=== PATIENT | male | born 1975 | race Hispanic/Latino ===

== ENCOUNTER 2018-04-20 21:27 | Emergency (ER) | payer OTHER ==
[2018-04-20] MEDS ORDERED: Sodium Chloride 0.9% 1,000 ML IV ONE (22:05)
--- NOTE | 2018-04-20 22:12 | ED PDOC ---
Arrival/HPI - General Chief Complaint: Fever Time Seen by Provider: 04/20/18 22:05 Historian: Patient - History of Present Illness Narrative History of Present Illness (Text): 04/20/18 22:04 A 42 year old male, whose past medical history includes endocarditis, presents to the emergency department complaining of high fever (measured at home reading 103.9), chills, and joint pain sinct last night. Patient notes also experiencing headache, fatigue, and slight chest congestion. He mentions his joint pain was worse last night and is currently in less pain than previously. Patient reports due to past medical history, he was concerned about the symptoms leading to similar issue and arrived to the emergency room for evaluation. Patient denies any sore throat, cough, chest pain, shortness of breath, vomiting, neck pain, trauma, or any other complaints at this time. Also , patient denies any recent sick contacts. No PMD Past Medical History - Provider Review Nursing Documentation Reviewed: Yes - Infectious Disease Hx of Infectious Diseases: MRSA - Cardiac Other/Comment: endocarditis - Musculoskeletal/Rheumatological Other/Comment: h/o MRSA left foot wound - 9 yrs ago - Psychiatric Hx Substance Use: No - Surgical History Hx Valve Replacement: Yes (2001 at [facility]) - Anesthesia Hx Anesthesia: Yes Hx Anesthesia Reactions: No Hx Malignant Hyperthermia: No Family/Social History - Physician Review Nursing Documentation Reviewed: Yes Family/Social History: No Known Family HX Smoking Status: Never Smoked Hx Alcohol Use: No Hx Substance Use: No Allergies/Home Meds Allergies/Adverse Reactions: Allergies ragweed pollen Adverse Reaction (Verified 04/20/18 21:58) RASH Home Medications: Home Meds Medication Instructions Recorded Confirmed Aspirin [Adult Aspirin] 1 tab.ec PO DAILY 04/20/18 04/20/18 Review of Systems - Physician Review All systems were reviewed & negative as marked: Yes - Review of Systems Constitutional: Fatigue, Fevers (103.9 as measured by patient at home), Night Sweats. absent: Other (no trauma) ENT: absent: Sore Throat Respiratory: absent: SOB, Cough Cardiovascular: Other (slight chest congestion). absent: Chest Pain Gastrointestinal: absent: Stool Changes (patient states " cant' process solids" has he has not been able to pass any stool), Vomiting Musculoskeletal: Arthralgias. absent: Neck Pain Neurological: Headache Physical Exam Vital Signs Reviewed: Yes Vital Signs Temp Pulse Resp BP Pulse Ox 04/21/18 01:09 99.0 F 78 17 101/57 L 98 04/20/18 21:47 101.6 F H 112 H 19 99/63 L 97 Temperature: Febrile Blood Pressure: Normal Pulse: Regular Respiratory Rate: Normal Appearance: Positive for: Well-Appearing, Non-Toxic, Comfortable Pain Distress: None Mental Status: Positive for: Alert and Oriented X 3 - Systems Exam Head: Present: Atraumatic, Normocephalic Mouth: Present: Moist Mucous Membranes Neck: Present: Normal Range of Motion Respiratory/Chest: Present: Clear to Auscultation, Good Air Exchange. No: Respiratory Distress, Accessory Muscle Use Cardiovascular: Present: Murmurs (systolic) Abdomen: No: Tenderness, Distention, Peritoneal Signs Back: Present: Normal Inspection Upper Extremity: Present: Normal Inspection. No: Cyanosis, Edema Lower Extremity: Present: Normal Inspection. No: Edema Neurological: Present: GCS=15, CN II-XII Intact, Speech Normal Skin: Present: Warm, Dry, Normal Color. No: Rashes Psychiatric: Present: Alert, Oriented x 3, Normal Insight, Normal Concentration Medical Decision Making ED Course and Treatment: 04/20/18 22:06 Impression: 42 year old male with high fever, chills, and joint pain. Will do sepsis workup given history of endocarditis. Plan: -- EKG -- Chest X-ray -- Labs -- Venous Blood Gas -- IV Fluids -- Urinalysis -- Blood Culture -- Reassess and disposition Progress Notes: Patient re-evaluated, after 1L NS bolus plus tylenol that patient previously took at home temperature and HR improved. BP also mildly improved. patient AAAOx3 and in no distress, has no complaints. Results discussed. Patient amenable to discharge home. No leukocytosis or lactic acidosis. Cultures pending , informed patient that he will be contacted if they returned telephone equipment appraiser positive. Meanwhile he is to return to the ED for any new or worsening symptoms. - Lab Interpretations Lab Results: 04/20/18 22:14 04/20/18 22:14 Lab Results 04/21/18 00:20: Urine Color Yellow, Urine Appearance Clear, Urine pH 6.0, Ur Specific [place] 1.010, Urine Protein Negative, Urine Glucose (UA) Negative, Urine Ketones Negative, Urine Blood Negative, Urine Nitrate Negative, Urine Bilirubin Negative, Urine Urobilinogen 1.0 H, Ur Leukocyte Esterase Negative 04/20/18 22:39: PT 16.7 H, INR 1.45 H, APTT 33.3 04/20/18 22:14: Sodium 140, Chloride 99, Potassium 4.7, Carbon Dioxide 27, Anion Gap 18, BUN 10, Creatinine 1.0, Est GFR ( Amer) > 60, Est GFR (Non- Af Amer) > 60, Random Glucose 115 H, Calcium 9.4, Phosphorus 2.8, Magnesium 1.8 , Total Bilirubin 1.2, AST 53, ALT 51, Alkaline Phosphatase 64, Total Protein 7.7, Albumin 4.8, Globulin 3.0, Albumin/Globulin Ratio 1.6 04/20/18 22:14: pO2 26 L, VBG pH 7.33, VBG pCO2 57.0, VBG HCO3 30.1 H, VBG Total CO2 31.8 H, VBG O2 Sat (Calc) 55.7, VBG Base Excess 2.8 H, VBG Potassium 4.4, Sodium 137.0, Chloride 101.0, Glucose 119 H, Lactate 1.5, FiO2 21.0, Venous Blood Potassium 4.4 04/20/18 22:14: WBC 4.3 L, RBC 5.64, Hgb 16.8, Hct 48.2, MCV 85.5, MCH 29.8, MCHC 34.9, RDW 12.5, Plt Count 114 L, MPV 11.5 H, Gran % 81.3 H, Lymph % (Auto) 8.8 L, [place] % (Auto) 9.7 H, Eos % (Auto) 0.0 L, Baso % (Auto) 0.2, Gran # 3.52, Lymph # (Auto) 0.4 L, [place] # (Auto) 0.4, Eos # (Auto) 0.0, Baso # (Auto) 0.01 - RAD Interpretation Radiology Orders: 04/20/18 22:06 CHEST PORTABLE [RAD] Stat - Medication Orders Current Medication Orders: Discontinued Medications Sodium Chloride (Sodium Chloride 0.9%) 1,000 mls @ 2,000 mls/hr IV .Q30M ONE Stop: 04/20/18 22:34 Last Admin: 04/20/18 22:25 Dose: 2,000 mls/hr eMAR Start Stop Document 04/20/18 22:25 IT (Rec: 04/20/18 22:25 IT [id number]) Intravenous Solution Start Date 04/20/18 Start Time 22:25 - Scribe Statement The provider has reviewed the documentation as recorded by the Vince Campbell Provider Scribe Provider Vince Attestation: All medical record entries made by the Scribe were at my direction and personally dictated by me. I have reviewed the chart and agree that the record accurately reflects my personal performance of the history, physical exam, medical decision making, and the department course for this patient. I have also personally directed, reviewed, and agree with the discharge instructions and disposition. Disposition/Present on Arrival - Present on Arrival Any Indicators Present on Arrival: No History of DVT/PE: No History of Uncontrolled Diabetes: No Urinary Catheter: No History of Decub. Ulcer: No History Surgical Site Infection Following: None - Disposition Have Diagnosis and Disposition been Completed?: Yes Diagnosis: Fever Disposition: HOME/ ROUTINE Disposition Time: 01:09 Condition: GOOD Discharge Instructions (ExitCare): Fever of Unknown Origin (DC) Additional Instructions: WILDER CHEEMA, thank you for letting us take care of you today. Your provider was Mildred Corrales MD and you were treated for FEVER. The emergency medical care you received today was directed at your acute symptoms. If you were prescribed any medication, please fill it and take as directed. It may take several days for your symptoms to resolve. Return to the Emergency Department if your symptoms worsen, do not improve, or if you have any other problems. Please contact your doctor or call one of the physicians/clinics you have been referred to that are listed on the Patient Visit Information form that is included in your discharge packet. Bring any paperwork you were given at discharge with you along with any medications you are taking to your follow up visit. Our treatment cannot replace ongoing medical care by a primary care provider outside of the emergency department. Thank you for allowing the [facility] team to be part of your care today. If you had an X-Ray or CT scan: A Radiologist will review the ED reading if any change in treatment is needed we will contact you. If you had a blood, urine, or wound culture: It will take several days for the results, if any change in treatment is needed we will contact you. If you had an STI test: It will take 48 hours for the results. Please call after 1 week if you have not heard back. Forms: [employer] ([place])
[2018-04-20 22:28] LABS: BASO # 0.01 K/mm3 (0.0-2.0); BASO % 0.2 % (0.0-3.0); GRAN # 3.52 (1.4-6.5); GRAN % 81.3 % (50.0-68.0); HEMOGLOBIN 16.8 g/dL (14.0-18.0); LYMPH # 0.4 (1.2-3.4); LYMPH % 8.8 % (22.0-35.0); MEAN CELL VOLUME 85.5 fl (80.0-105.0); MEAN CORPUSCULAR HEMOGLOBIN 29.8 pg (25.0-35.0); MEAN CORPUSCULAR HGB CONC 34.9 g/dl (31.0-37.0); MEAN PLATELET VOLUME 11.5 fl (7.0-11.0); MONO # 0.4 (0.1-0.6); MONO % 9.7 % (1.0-6.0); RBC 5.64 10^6/uL (3.5-6.1); RED CELL DISTRIBUTION WIDTH 12.5 % (11.5-14.5); WHITE BLOOD COUNT 4.3 10^3/ul (4.5-11.0)
[2018-04-20 22:34] LABS: VENOUS BLOOD GAS BASE EXCESS 2.8 mmol/L (0.0-2.0); VENOUS BLOOD GAS PO2 26 mm/Hg (30-55); VENOUS BLOOD PH 7.33 (7.32-7.43)
[2018-04-20 22:39] LABS: ALB/GLOB RATIO 1.6 (1.1-1.8); ALBUMIN 4.8 g/dL (3.0-4.8); ALT/SGPT 51 U/L (7-56); AST/SGOT 53 U/L (17-59); BLOOD UREA NITROGEN 10 mg/dL (7-21); CALCIUM 9.4 mg/dL (8.4-10.5); GFR AFRICAN-AMERICAN > 60; GFR NON-AFRICAN AMERICAN > 60
[2018-04-20 23:17] LABS: INR 1.45 (0.93-1.08); PARTIAL THROMBOPLASTIN TIME 33.3 Seconds (25.1-36.5); PROTHROMBIN TIME 16.7 SECONDS (9.4-12.5)
[2018-04-21 00:27] LABS: URINE BILIRUBIN NEGATIVE (NEGATIVE); URINE BLOOD NEGATIVE (NEGATIVE); URINE GLUCOSE (UA) NEGATIVE (NEGATIVE); URINE LEUKOCYTE ESTERASE NEGATIVE Leu/uL (NEGATIVE); URINE PROTEIN NEGATIVE mg/dL (<30 mg/dL)
[2018-04-21 00:34] LABS: URINE COLOR YELLOW (YELLOW)
[2018-04-21 00:35] LABS: URINE APPEARANCE CLEAR (CLEAR)
[2018-04-21 01:09] VITALS: BP 101/57; PULSE 78; RESP 17; TEMP 99; O2SAT 98
--- NOTE | 2018-04-21 08:33 | RAD ---
Date of service: 04/20/2018 HISTORY: Sepsis Patient COMPARISON: No prior. FINDINGS: LUNGS: No active pulmonary disease. PLEURA: No significant pleural effusion identified, no pneumothorax apparent. CARDIOVASCULAR: Normal. OSSEOUS STRUCTURES: Sternal wires VISUALIZED UPPER ABDOMEN: Normal. OTHER FINDINGS: None. IMPRESSION: No active disease.
--- NOTE | 2018-04-21 21:02 | CARD ---
APPROVED REPORT Date of service: 04/20/2018 EKG Measurement Heart [id number] <Conclusion> Poor data quality, interpretation may be adversely affected Normal sinus rhythm Possible Left atrial enlargement Borderline ECG
== END 2018-04-21 01:09 | disposition home or self-care (01) ==
LOC: ED 21:27
DX: R50.9 Fever, unspecified (principal)
CPT/HCPCS: 71045; 80053; 81003; 82803; 83735; 84100; 85025; 85610; 85730; 87040; 87149; 87205; 93005; 99284; J7030

== ENCOUNTER 2018-04-22 11:51 | Inpatient (IN) | payer OTHER ==
[2018-04-22 12:39] VITALS: BMI 19.3
[2018-04-22] MEDS ORDERED: Vancomycin 1gm in NS 250ml 1 GM/250 ML BAG IVPB STA (12:45)
[2018-04-22 12:55] LABS: VENOUS BLOOD GAS BASE EXCESS -0.4 mmol/L (0.0-2.0); VENOUS BLOOD GAS PO2 25 mm/Hg (30-55); VENOUS BLOOD PH 7.31 (7.32-7.43)
[2018-04-22 13:02] LABS: BASO # 0.01 K/mm3 (0.0-2.0); BASO % 0.3 % (0.0-3.0); GRAN # 3.01 (1.4-6.5); GRAN % 82.4 % (50.0-68.0); HEMOGLOBIN 16.1 g/dL (14.0-18.0); LYMPH # 0.4 (1.2-3.4); LYMPH % 10.7 % (22.0-35.0); MEAN CELL VOLUME 84.6 fl (80.0-105.0); MEAN CORPUSCULAR HEMOGLOBIN 29.6 pg (25.0-35.0); MEAN PLATELET VOLUME 11.8 fl (7.0-11.0); MONO # 0.2 (0.1-0.6); MONO % 6.6 % (1.0-6.0); RBC 5.44 10^6/uL (3.5-6.1); RED CELL DISTRIBUTION WIDTH 12.6 % (11.5-14.5); WHITE BLOOD COUNT 3.7 10^3/ul (4.5-11.0)
[2018-04-22 13:05] LABS: INR 1.29 (0.93-1.08); PARTIAL THROMBOPLASTIN TIME 40.9 Seconds (25.1-36.5); PROTHROMBIN TIME 14.9 SECONDS (9.4-12.5)
[2018-04-22 13:11] LABS: ALB/GLOB RATIO 1.6 (1.1-1.8); ALBUMIN 4.7 g/dL (3.0-4.8); ALT/SGPT 82 U/L (7-56); AST/SGOT 74 U/L (17-59); BLOOD UREA NITROGEN 7 mg/dL (7-21); CALCIUM 9.3 mg/dL (8.4-10.5); GFR AFRICAN-AMERICAN > 60; GFR NON-AFRICAN AMERICAN > 60
[2018-04-22] MEDS ORDERED: Sodium Chloride 0.9% 500 ML IV STA (13:16)
[2018-04-22 13:20] LABS: B-TYPE NATRIURETIC PEPTIDE 458 pg/mL (0-450); TROPONIN I < 0.01 ng/mL
--- NOTE | 2018-04-22 13:55 | ED PDOC ---
Arrival/HPI - General Chief Complaint: Medical Clearance Time Seen by Provider: 04/22/18 12:32 Historian: Patient - History of Present Illness Narrative History of Present Illness (Text): 04/22/18 13:52 Patient is a 42 yo male with past medical history of prior valvular cardiac surgery, history of endocarditis, history of cva, presents to the Emergency Department today after blood cultures obtained during ER visit on 04/20/18 were reportedly positive. Patient was called at home when results were provided and stated he "felt better than Monday" but still was running fevers of 102 on Monday and 100 this morning. He denies cough or shortness of breath. He denies rash. He denies abdominal pain. He states his abdomen "feels like my food isn't going down" but he denies nausea. He reported decreased appetite. No headache. No rash. No neck pain. No sore throat or visual symptoms. He denies abdominal pain or back pain. Denies bruising. Denies bloody urine or stool. Past Medical History - Infectious Disease Hx of Infectious Diseases: None - Cardiac Other/Comment: endocarditis - Musculoskeletal/Rheumatological Other/Comment: h/o MRSA left foot wound - 9 yrs ago - Psychiatric Hx Substance Use: No - Surgical History Hx Valve Replacement: Yes (2001 at [facility]) - Anesthesia Hx Anesthesia: Yes Hx Anesthesia Reactions: No Hx Malignant Hyperthermia: No Family/Social History Family/Social History: Unknown Family HX Smoking Status: Never Smoked Hx Alcohol Use: No Hx Substance Use: No Allergies/Home Meds Allergies/Adverse Reactions: Allergies ragweed pollen Adverse Reaction (Verified 04/22/18 12:16) RASH Home Medications: Home Meds Medication Instructions Recorded Confirmed Aspirin [Adult Aspirin] 1 tab.ec PO DAILY 04/20/18 04/22/18 Review of Systems - Review of Systems Constitutional: Fatigue, Fevers. absent: Weight Change Eyes: absent: Vision Changes, Eye Pain ENT: absent: Voice Changes, Sore Throat, Sinus Congestion Respiratory: absent: SOB, Cough, Wheezing Cardiovascular: absent: Chest Pain, Edema, AGUILAR, Orthopnea, Syncope Gastrointestinal: Appetite Changes. absent: Abdominal Pain, Diarrhea, Vomiting , Hematochezia, Hematemesis, Anorexia Genitourinary Male: absent: Dysuria, Frequency Musculoskeletal: Arthralgias, Myalgias. absent: Back Pain Skin: absent: Rash, Skin Lesions, Abscess Neurological: absent: Headache, Dizziness, Focal Weakness Endocrine: absent: Polyuria Hemo/Lymphatic: absent: Easy Bleeding Physical Exam Vital Signs Reviewed: Yes Vital Signs Temp Pulse Resp BP Pulse Ox 04/22/18 14:32 81 18 102/69 99 04/22/18 12:14 99.0 F 90 16 98/65 L 99 Temperature: Afebrile Pulse: Regular Appearance: Positive for: Non-Toxic Pain Distress: None Mental Status: Positive for: Alert and Oriented X 3 - Systems Exam Head: Present: Atraumatic, Normocephalic Pupils: Present: PERRL, Other (no visual acuity or visual field deficits described) Extroacular Muscles: Present: EOMI Conjunctiva: Present: Normal, Other (no conunctival lesions) Mouth: Present: Moist Mucous Membranes. No: Drooling, Trismus Pharnyx: No: EXUDATE, Muffled/Hoarse Voice, Strider Nose (Internal): Present: No Active Bleeding. No: Rhinorrhea Neck: Present: Normal Range of Motion, Trachea Midline. No: Meningeal Signs, MIDLINE TENDERNESS Respiratory/Chest: Present: Clear to Auscultation. No: Respiratory Distress, Wheezes, Rales, Rhonchi Cardiovascular: Present: Regular Rate and Rhythm, Murmurs (prominent systolic murmur) Abdomen: No: Tenderness, Peritoneal Signs, Rebound, Guarding, Mass/Organomegaly Rectal: No: Gross Blood Upper Extremity: Present: Normal ROM, Neurovascularly Intact. No: Swelling, Erythema Lower Extremity: Present: Normal Inspection, NORMAL PULSES, Neurovascularly Intact. No: Edema, CALF TENDERNESS, Tenderness, Swelling Neurological: Present: Speech Normal, Motor Func Grossly Intact, Normal Sensory Function, Gait Normal, Memory Normal Skin: Present: Warm, Dry, Other (no rash noted to trunk or extremities, no petechia, no lesions to fingertips or nailbeds). No: Rashes Lymphatic: No: Cervical Adenopathy Psychiatric: Present: Alert, Normal Insight, Normal Concentration Medical Decision Making ED Course and Treatment: Patient was called by me earlier this morning regarding positive blood culture results which I received earlier this morning. I reviewed blood culture results with patient in laymens terms and reviewed his past medical history. Patient states he has improvement in bodyaches and joint pain that he had two days ago, but still has fevers. Denies headache. Denies numbness or weakness. Denies facial droop. He denies rash or bruising. Denies chest pain or shortness of breath. Denies calf pain or swelling. Denies pleuritic pain. On exam, he has no meningeal signs, he is nontoxic appearing. He has prominent systolic murmur which he states he is aware of from his previous cardiac procedures. No hypoxia noted. I reviewed patient's labs from 04/20 compared to today. Platelet count has dropped to 80. PT/INR/PTT elevated. Bilirubin and LFTs elevated. He has NO abdominal pain on palpation. Abnormal labs when compared to previous visit was compared and discussed with patient in lamens' terms. I feel that he is at high risk of sepsis and endocarditis and bacteremia, especially given trend of labs. He states that he "feels ok". Continues to deny pain or discomfort. Patient's case discussed with Dr. Jose Alberto Bazan, Infectious Disease in ED. I reviewed history as well as labs. IV vancomycin ordered. He is not tachycardic. Initial lactate unremarkable. Labs are concerning for risk of sepsis. I discussed case with pharm tech Dr. Lane, covering for PMD requested consult Dr. Duong. History and exam reviewed. Abnormal labs reviewed. Ultrasound ordered. 04/22/2018 14:21 Abdominal Ultrasound IMPRESSION: Fatty infiltration of the liver. Dictator: Jonas Allen MD He continues to have no headache, no neck pain, no rash or lesions noted on fingertips or palms/ soles, no petechial rash. No skin lesions noted. Will admit to telemetry bed as stable BP after iv fluids, no tachycardia, initial lactate unremarkable. Differential diagnosis reviewed with patient and have communicated with ID and coring machine operator as well as Dr. Rizzo, oncall PMD who will admit patient. CXR from previous visit reviewed. He reports no new cough or shortness of breath since then. UA from prior visit reviewed. He denies urinary symptoms. - Lab Interpretations Lab Results: 04/22/18 12:40 04/22/18 12:40 Lab Results 04/22/18 12:40: Sodium 138, Chloride 100, Potassium 4.3, Carbon Dioxide 26, Anion Gap 17, BUN 7, Creatinine 0.8, Est GFR ( Amer) > 60, Est GFR (Non- Af Amer) > 60, Random Glucose 110, Calcium 9.3, Magnesium 2.0, Total Bilirubin 2.1 H, AST 74 H D, ALT 82 H, Alkaline Phosphatase 84, Lactate Dehydrogenase 974 H, Total Creatine Kinase 158, Troponin I < 0.01, NT-Pro-B Natriuret Pep 458 H, Total Protein 7.7, Albumin 4.7, Globulin 3.0, Albumin/Globulin Ratio 1.6 04/22/18 12:40: pO2 25 L, VBG pH 7.31 L, VBG pCO2 53.0, VBG HCO3 26.7, VBG Total CO2 28.3 H, VBG O2 Sat (Calc) 48.6, VBG Base Excess -0.4 L, VBG Potassium 4.1, Sodium 134.0, Chloride 100.0, Glucose 114 H, Lactate 1.2, FiO2 21.0, Venous Blood Potassium 4.1 04/22/18 12:40: PT 14.9 H, INR 1.29 H, APTT 40.9 H 04/22/18 12:40: WBC 3.7 L, RBC 5.44, Hgb 16.1, Hct 46.0, MCV 84.6, MCH 29.6, MCHC 35.0, RDW 12.6, Plt Count 80 L, MPV 11.8 H, Gran % 82.4 H, Lymph % (Auto) 10.7 L, [place] % (Auto) 6.6 H, Eos % (Auto) 0.0 L, Baso % (Auto) 0.3, Gran # 3.01 , Lymph # (Auto) 0.4 L, [place] # (Auto) 0.2, Eos # (Auto) 0.0, Baso # (Auto) 0.01 Interpretation: Abnormal lab values - RAD Interpretation Narrative RAD Interpretations (Text): 04/22/18 18:42 chest xray from 04/20/18 reviewed Radiology Orders: 04/22/18 13:14 ABDOMEN COMPLETE [US] Stat - EKG Interpretation EKG Interpretation (Text): 04/22/18 18:16 EKG at 14:49 normal sinus rhythm rate of 82 Interpreted by ED Physician: Yes Type: 12 lead EKG - Medication Orders Current Medication Orders: Sodium Chloride (Sodium Chloride 0.9%) 1,000 mls @ 100 mls/hr IV .Q10H STEPHANIE Last Admin: 04/22/18 15:16 Dose: 100 mls/hr eMAR Start Stop Document 04/22/18 15:16 GMD (Rec: 04/22/18 15:16 GMD [id number]) Intravenous Solution Start Date 04/22/18 Start Time 15:16 Vancomycin HCl (Vancomycin 1gm) 1 gm in 250 mls @ 167 mls/hr IVPB 0100,1300 STEPHANIE PRN Reason: Protocol Discontinued Medications Vancomycin HCl (Vancomycin 1gm) 1 gm in 250 mls @ 167 mls/hr IVPB STAT STA PRN Reason: Protocol Stop: 04/22/18 14:14 Last Admin: 04/22/18 13:24 Dose: 167 mls/hr eMAR Start Stop Document 04/22/18 13:24 GMD (Rec: 04/22/18 13:24 GMD [id number]) Intravenous Solution Start Date 04/22/18 Start Time 13:24 End Date 04/22/18 End time 14:54 Total Infusion Time 90 Sodium Chloride (Sodium Chloride 0.9%) 500 mls @ 1,000 mls/hr IV .Q30M STA Stop: 04/22/18 13:45 Last Admin: 04/22/18 13:23 Dose: 1,000 mls/hr eMAR Start Stop Document 04/22/18 13:23 GMD (Rec: 04/22/18 13:24 GMD [id number]) Intravenous Solution Start Date 04/22/18 Start Time 13:23 End Date 04/22/18 End time 13:53 Total Infusion Time 30 Disposition/Present on Arrival - Present on Arrival Any Indicators Present on Arrival: No History of DVT/PE: No History of Uncontrolled Diabetes: No Urinary Catheter: No History of Decub. Ulcer: No History Surgical Site Infection Following: None - Disposition Have Diagnosis and Disposition been Completed?: Yes Diagnosis: Positive blood cultures, Bacteremia, Fever and chills, Thrombocytopenia, Elevated liver enzymes, Abnormal coagulation profile Disposition: HOSPITALIZED Disposition Time: 13:00 Patient Plan: Admission, Telemetry Patient Problems: Current Active Problems Problem Status Onset Bacteremia Acute Elevated liver enzymes Acute Fever and chills Acute Positive blood cultures Acute Thrombocytopenia Acute Condition: SERIOUS
--- NOTE | 2018-04-22 14:23 | US ---
Date of service: 04/22/2018 HISTORY: upper abdominal pain COMPARISON: None. TECHNIQUE: Sonographic evaluation of the abdomen. FINDINGS: LIVER: Measures 13 x 11.8 cm. Increased echogenicity of the liver parenchyma. No mass. No intrahepatic bile duct dilatation. GALLBLADDER: Unremarkable. No gallstones. COMMON BILE DUCT: Measures 3 mm. No stones. No dilatation. PANCREAS: Unremarkable as visualized. No mass. No ductal dilatation. RIGHT KIDNEY: Measures 10.66 x 4.34 x 5.36cm. Normal echogenicity. No calculus, mass, or hydronephrosis. LEFT KIDNEY: Measures 9.62 x 3.48 x 5.87cm. Normal echogenicity. No calculus, mass, or hydronephrosis. SPLEEN: Normal in size and contour. No mass. 13.45 x 6.58 AORTA: No aneurysmal dilatation. IVC: Unremarkable. OTHER FINDINGS: None. IMPRESSION: Fatty infiltration of the liver
[2018-04-22] MEDS: Sodium Chloride 0.9% 1,000 ML IV SCH (15:16)
[2018-04-22 15:54] LABS: PH,URINE 6.5 (4.7-8.0); URINE BILIRUBIN NEGATIVE (NEGATIVE); URINE BLOOD NEGATIVE (NEGATIVE); URINE GLUCOSE (UA) NEGATIVE (NEGATIVE); URINE LEUKOCYTE ESTERASE NEGATIVE Leu/uL (NEGATIVE); URINE PROTEIN TRACE mg/dL (<30 mg/dL); URINE UROBILINOGEN >=8.0 E.U./dL (<1 E.U./dL)
[2018-04-22 16:00] LABS: URINE APPEARANCE CLEAR (CLEAR); URINE COLOR LIGHT YELLOW (YELLOW)
[2018-04-22 16:48] LABS: URINE BACTERIA FEW (NEG); URINE RBC 0 - 2 /hpf (0-2); URINE WBC 0 - 2 /hpf (0-6)
[2018-04-23] MEDS: Vancomycin 1gm in NS 250ml 1 GM/250 ML BAG IVPB SCH ×2 (00:57→13:17)
[2018-04-23] MEDS: Sodium Chloride 0.9% 1,000 ML IV SCH ×2 (00:57→13:17)
[2018-04-23 07:13] LABS: HEMOGLOBIN 15.1 g/dL (14.0-18.0); MEAN CELL VOLUME 84.6 fl (80.0-105.0); MEAN CORPUSCULAR HEMOGLOBIN 29.4 pg (25.0-35.0); MEAN CORPUSCULAR HGB CONC 34.8 g/dl (31.0-37.0); MEAN PLATELET VOLUME 12.7 fl (7.0-11.0); RBC 5.13 10^6/uL (3.5-6.1); RED CELL DISTRIBUTION WIDTH 12.7 % (11.5-14.5)
[2018-04-23 07:36] LABS: BLOOD UREA NITROGEN 8 mg/dL (7-21); GFR AFRICAN-AMERICAN > 60; GFR NON-AFRICAN AMERICAN > 60; HDL CHOLESTEROL 34 mg/dL (29-60)
[2018-04-23 07:37] LABS: WHITE BLOOD COUNT 2.3 10^3/ul (4.5-11.0)
[2018-04-23 07:46] LABS: LDL CHOLESTEROL 52 mg/dL (0-129)
[2018-04-23 07:48] LABS: IRON 38 ug/dL (45-180)
[2018-04-23 07:57] LABS: % IRON SATURATION 17 % (20-55); TOTAL IRON BINDING CAPACITY 229 ug/dL (261-462)
[2018-04-23 08:12] LABS: ALB/GLOB RATIO 1.5 (1.1-1.8); ALT/SGPT 77 U/L (7-56); AST/SGOT 66 U/L (17-59); BILIRUBIN,DIRECT 0.5 mg/dL (0.0-0.4)
[2018-04-23 08:21] LABS: INR 1.24 (0.93-1.08); PARTIAL THROMBOPLASTIN TIME 36.1 Seconds (25.1-36.5); PROTHROMBIN TIME 14.3 SECONDS (9.4-12.5)
--- NOTE | 2018-04-23 10:18 | CARD ---
APPROVED REPORT Date of service: 04/22/2018 EKG Measurement Heart [id number] <Conclusion> Normal sinus rhythm Possible Left atrial enlargement Borderline ECG
--- NOTE | 2018-04-23 11:23 | CP.PCM.CON ---
<Yadiel Grijalva - Last Filed: 04/23/18 15:42> History of Present Illness - History of Present Illness History of Present Illness: GI Consult Note for Dr. Clive Grijalva, PGY-3 IM This is a 42 yo M with PMH of prior CVA without residual deficit and endocarditis s/p valvular replacement surgery (congenital bicuspid aortic valve removed, [place] pulmonic valve harvested and implanted as new aortic valve, cadaver pulmonic valve used for new pulmonic valve) who initially presented to [facility] on 04/20/18 for fever of 103.9F, chills, joint pain, headache, fatigue, and slight chest congestion, all of which he experienced with his last episode of endocarditis. Patient was worked up in the ED, improved, and was discharged to home. However, yesterday, both of patient's blood cultures became positive for gram positive cocci in chains, highly concerning for strep bacteremia and possible new endocarditis, so patient was called and instructed to return to the hospital, which he did. GI was consulted today due to mildly elevated LFTs on admission blood work which were not present on ED bloodwork 2 days prior. At time of exam, patient is resting comfortably in bed. Denies any chest pain, palpitations, shortness of breath, emesis, diarrhea, dysuria, hematuria, melena , hematochezia, focal weakness, or swelling of any upper or lower extremities. Reports intermittent febrile sensation (febrile overnight, Tmax 101.5F), still some malaie and diffuse joint pains. Reports that etiology of first endocarditis episode was never determined. Denies ever using IV drugs, denies foriegn travel or partaking in exotic or uncooked foods. Not currently on any medications (was on Coumadin post-CVA, but was stopped after the endocarditis and bio-valve replacements), and not currently following up with a PMD or [employer]. Does admit to using Advil (dose unspecified, 2 "tabs") q4 x2 days (-13), and then Tylenol regular strength (1 "tab") q4 x2 days (14- 15th). All other ROS in 12-system review negative. PMH: as above PSH: valvular replacements as above Fam Hx: CAD/RI in parents and grandparents, no family hx of liver disease Soc Hx: denies tobacco, illicits/IVDA, admits social EtOH (no binge episodes in last 4 weeks) PMD: none Review of Systems - Review of Systems All systems: reviewed and no additional remarkable complaints except (as per HPI ) Past Patient History - Infectious Disease Hx of Infectious Diseases: None - Past Social History Smoking Status: Never Smoked - CARDIAC Other/Comment: endocarditis - PULMONARY Hx Respiratory Disorders: No Hx Asthma: Yes (as a child) - NEUROLOGICAL HX Cerebrovascular Accident: Yes (1999, no deficits) - HEENT Hx HEENT Problems: No - RENAL Hx Chronic Kidney Disease: No - ENDOCRINE/METABOLIC Hx Endocrine Disorders: No - HEMATOLOGICAL/ONCOLOGICAL Hx Blood Disorders: No - INTEGUMENTARY Hx Psoriasis: Yes (pt thinks he has psoriasis) - MUSCULOSKELETAL/RHEUMATOLOGICAL Other/Comment: h/o MRSA left foot wound - 9 yrs ago - GASTROINTESTINAL Hx Gastrointestinal Disorders: No - GENITOURINARY/GYNECOLOGICAL Hx Genitourinary Disorders: No - PSYCHIATRIC Hx Substance Use: No - SURGICAL HISTORY Hx Valve Replacement: Yes (2000 at [facility]) - ANESTHESIA Hx Anesthesia: Yes Hx Anesthesia Reactions: No Hx Malignant Hyperthermia: No Meds Allergies/Adverse Reactions: Allergies Allergy/AdvReac Type Severity Reaction Status Date / Time ragweed pollen AdvReac RASH Verified 04/22/18 12:16 - Medications Medications: Current Medications Acetaminophen (Tylenol 325mg Tab) 650 mg PO Q4H PRN PRN Reason: temp greater than 100.4 Last Admin: 04/22/18 19:37 Dose: 650 mg Aspirin (Ecotrin) 81 mg PO DAILY [facility] Last Admin: 04/23/18 10:25 Dose: 81 mg Famotidine (Pepcid) 40 mg PO HS [facility] Last Admin: 04/22/18 21:21 Dose: 40 mg Sodium Chloride (Sodium Chloride 0.9%) 1,000 mls @ 100 mls/hr IV .Q10H [facility] Last Admin: 04/23/18 00:57 Dose: 100 mls/hr Vancomycin HCl (Vancomycin 1gm) 1 gm in 250 mls @ 167 mls/hr IVPB 0100,1300 [facility] PRN Reason: Protocol Last Admin: 04/23/18 00:57 Dose: 167 mls/hr Physical Exam - Constitutional Appears: Non-toxic, No Acute Distress - Head Exam Head Exam: ATRAUMATIC, NORMAL INSPECTION, NORMOCEPHALIC - Eye Exam Eye Exam: EOMI, Normal appearance. absent: Conjunctival injection, Scleral icterus Pupil Exam: absent: Fixed, Irregular - ENT Exam ENT Exam: Mucous Membranes Moist. absent: Mucous Membranes Dry - Neck Exam Neck exam: Positive for: Full Rom, Normal Inspection - Respiratory Exam Respiratory Exam: Clear to Auscultation Bilateral, NORMAL BREATHING PATTERN. absent: Accessory Muscle Use, Chest Wall Tenderness, Decreased Breath Sounds, Rales, Rhonchi, Wheezes - Cardiovascular Exam Cardiovascular Exam: Tachycardia - GI/Abdominal Exam GI & Abdominal Exam: Normal Bowel Sounds, Soft. absent: Diminished Bowel Sounds , Distended, Tenderness - Extremities Exam Extremities exam: Positive for: normal capillary refill, normal inspection, pedal pulses present. Negative for: calf tenderness, tenderness - Back Exam Back exam: absent: CVA tenderness (L), CVA tenderness (R) - Neurological Exam Neurological exam: Alert, Oriented x3 - Psychiatric Exam Psychiatric exam: Normal Affect, Normal Mood - Skin Skin Exam: Dry, Intact, Normal Color, Warm Additional comments: no jaundice, petichea, osler's nodes, or janeway lesions appreciated on exam Results - Vital Signs Recent Vital Signs: Last Vital Signs Temp 98.7 F 04/23/18 06:00 Pulse 63 04/23/18 10:00 Resp 20 04/23/18 06:00 BP 96/62 L 04/23/18 06:00 Pulse Ox 98 04/23/18 06:00 - Labs Result Diagrams: 04/23/18 06:45 04/23/18 06:45 Labs: Laboratory Results - last 24 hr 04/22/18 04/23/18 04/23/18 15:11 06:45 06:45 WBC RBC Hgb Hct MCV MCH MCHC RDW Plt Count MPV PT INR APTT Sodium 140 Potassium 4.2 Chloride 103 Carbon Dioxide 26 Anion Gap 16 BUN 8 Creatinine 0.7 L Est GFR ( Amer) > 60 Est GFR (Non-Af Amer) > 60 Random Glucose 78 Calcium 9.0 Iron 38 L TIBC 229 L % Saturation 17 L Total Bilirubin 1.4 H Direct Bilirubin 0.5 H AST 66 H ALT 77 H Alkaline Phosphatase 77 Total Protein 6.7 Albumin 4.0 Globulin 2.7 Albumin/Globulin Ratio 1.5 Triglycerides 168 H Cholesterol 133 LDL Cholesterol Direct 52 HDL Cholesterol 34 TSH 3rd Generation Urine Color Light yellow Urine Appearance Clear Urine pH 6.5 Ur Specific [place] 1.015 Urine Protein Trace H Urine Glucose (UA) Negative Urine Ketones 15 H Urine Blood Negative Urine Nitrate Negative Urine Bilirubin Negative Urine Urobilinogen >=8.0 Ur Leukocyte Esterase Negative Urine RBC 0 - 2 Urine WBC 0 - 2 Ur Epithelial Cells None Urine Bacteria Few 04/23/18 04/23/18 04/23/18 06:45 06:45 07:30 WBC 2.3 L* D RBC 5.13 Hgb 15.1 Hct 43.4 MCV 84.6 MCH 29.4 MCHC 34.8 RDW 12.7 Plt Count 66 L MPV 12.7 H PT 14.3 H INR 1.24 H APTT 36.1 Sodium Potassium Chloride Carbon Dioxide Anion Gap BUN Creatinine Est GFR ( Amer) Est GFR (Non-Af Amer) Random Glucose Calcium Iron TIBC % Saturation Total Bilirubin Direct Bilirubin AST ALT Alkaline Phosphatase Total Protein Albumin Globulin Albumin/Globulin Ratio Triglycerides Cholesterol LDL Cholesterol Direct HDL Cholesterol TSH 3rd Generation 1.97 Urine Color Urine Appearance Urine pH Ur Specific [place] Urine Protein Urine Glucose (UA) Urine Ketones Urine Blood Urine Nitrate Urine Bilirubin Urine Urobilinogen Ur Leukocyte Esterase Urine RBC Urine WBC Ur Epithelial Cells Urine Bacteria Assessment & Plan - Assessment and Plan (Free Text) Assessment: This is a 42 yo M with PMH of prior CVA without residual deficit and endocarditis s/p valvular replacement surgery (congenital bicuspid aortic valve removed, [place] pulmonic valve harvested and implanted as new aortic valve, cadaver pulmonic valve used for new pulmonic valve) presenting for possible new episode of endocarditis. GI was consulted today due to mildly elevated LFTs on admission blood work which were not present on ED bloodwork 2 days prior. Plan: prior CVA without residual deficit hx endocarditis s/p valvular replacement surgery -congenital bicuspid aortic valve removed, [place] pulmonic valve implanted as new aortic valve, cadaver pulmonic valve used for new pulmonic valve Elevated LFTs on representation Ddx: elevated LFTs 2/2 sepsis vs tylenol induced vs NSAID induced vs septic emboli in liver, possibly multifactorial Abd US obtained, negative for ductal dilation, CBD 3mm, mild fatty liver Mild elevated TBili and AST/ALT compared to labs in ED 2 days prior, more likely drug induced or sepsis PT/INR improved today as compared to initial ED labs 2 days prior, APTT mildly increased No acute GI intervention at this time, continue to trend daily LFTs and Coags to monitor hepatic function, avoid hepatotoxic drugs as reasonable Patient seen, reviewed, and examined with attending, Dr. Duffy <Kenton Duffy V - Last Filed: 04/23/18 22:46> Meds - Medications Medications: Current Medications Acetaminophen (Tylenol 325mg Tab) 650 mg PO Q4H PRN PRN Reason: temp greater than 100.4 Last Admin: 04/22/18 19:37 Dose: 650 mg Aspirin (Ecotrin) 81 mg PO DAILY [facility] Last Admin: 04/23/18 10:25 Dose: 81 mg Famotidine (Pepcid) 40 mg PO HS [facility] Last Admin: 04/23/18 22:31 Dose: 40 mg Sodium Chloride (Sodium Chloride 0.9%) 1,000 mls @ 100 mls/hr IV .Q10H [facility] Last Admin: 04/23/18 13:17 Dose: 100 mls/hr Vancomycin HCl (Vancomycin 1gm) 1 gm in 250 mls @ 167 mls/hr IVPB 0100,1300 STEPHANIE PRN Reason: Protocol Last Admin: 04/23/18 13:17 Dose: 167 mls/hr Results - Vital Signs Recent Vital Signs: Last Vital Signs Temp 99 F 04/23/18 17:44 Pulse 78 04/23/18 18:00 Resp 19 04/23/18 17:44 BP 105/71 04/23/18 17:44 Pulse Ox 98 04/23/18 06:00 - Labs Result Diagrams: 04/23/18 06:45 04/23/18 06:45 Labs: Laboratory Results - last 24 hr 04/23/18 04/23/18 04/23/18 06:45 06:45 06:45 WBC RBC Hgb Hct MCV MCH MCHC RDW Plt Count MPV PT INR APTT Sodium 140 Potassium 4.2 Chloride 103 Carbon Dioxide 26 Anion Gap 16 BUN 8 Creatinine 0.7 L Est GFR ( Amer) > 60 Est GFR (Non-Af Amer) > 60 Random Glucose 78 Hemoglobin A1c 5.0 Calcium 9.0 Iron 38 L TIBC 229 L % Saturation 17 L Total Bilirubin 1.4 H Direct Bilirubin 0.5 H AST 66 H ALT 77 H Alkaline Phosphatase 77 Total Protein 6.7 Albumin 4.0 Globulin 2.7 Albumin/Globulin Ratio 1.5 Triglycerides 168 H Cholesterol 133 LDL Cholesterol Direct 52 HDL Cholesterol 34 Vitamin B12 432 Folate 7.0 TSH 3rd Generation Hepatitis A IgM Ab Hep Bs Antigen Hep B Core IgM Ab Hepatitis C Antibody 04/23/18 04/23/18 04/23/18 06:45 06:45 06:45 WBC 2.3 L* D RBC 5.13 Hgb 15.1 Hct 43.4 MCV 84.6 MCH 29.4 MCHC 34.8 RDW 12.7 Plt Count 66 L MPV 12.7 H PT INR APTT Sodium Potassium Chloride Carbon Dioxide Anion Gap BUN Creatinine Est GFR ( Amer) Est GFR (Non-Af Amer) Random Glucose Hemoglobin A1c Calcium Iron TIBC % Saturation Total Bilirubin Direct Bilirubin AST ALT Alkaline Phosphatase Total Protein Albumin Globulin Albumin/Globulin Ratio Triglycerides Cholesterol LDL Cholesterol Direct HDL Cholesterol Vitamin B12 Folate TSH 3rd Generation 1.97 Hepatitis A IgM Ab Negative Hep Bs Antigen Negative Hep B Core IgM Ab Negative Hepatitis C Antibody Negative 04/23/18 07:30 WBC RBC Hgb Hct MCV MCH MCHC RDW Plt Count MPV PT 14.3 H INR 1.24 H APTT 36.1 Sodium Potassium Chloride Carbon Dioxide Anion Gap BUN Creatinine Est GFR ( Amer) Est GFR (Non-Af Amer) Random Glucose Hemoglobin A1c Calcium Iron TIBC % Saturation Total Bilirubin Direct Bilirubin AST ALT Alkaline Phosphatase Total Protein Albumin Globulin Albumin/Globulin Ratio Triglycerides Cholesterol LDL Cholesterol Direct HDL Cholesterol Vitamin B12 Folate TSH 3rd Generation Hepatitis A IgM Ab Hep Bs Antigen Hep B Core IgM Ab Hepatitis C Antibody Attending/Attestation - Attestation I have personally seen and examined this patient.: Yes I have fully participated in the care of the patient.: Yes I have reviewed all pertinent clinical information: Yes Notes (Text): This is an addendum to GI consult report dictated by the 3[employer] An[employer]ator.The patient was seen and examined earlier. Medical records, lab studies, imagings were reviewed. Last 24 hours events reviewed. Agreed with the above treatment plan as outlined in [employer] 's notes the with the addition of the following Mildly elevated LFT Sepsis /gram positive cocci bacterimiar/o endocarditis sp AVR and PVR sono reviewed Followup LFT,hep profile 04/23/18 22:45
[2018-04-23 12:36] LABS: HEPATITIS B SURFACE AG Negative (NEGATIVE)
[2018-04-23 12:41] LABS: HEPATITIS A IGM NEGATIVE (NEGATIVE); HEPATITIS B CORE AB NEGATIVE (NEGATIVE)
[2018-04-23 12:53] LABS: HEPATITIS C ANTIBODY NEGATIVE (NEGATIVE)
--- NOTE | 2018-04-23 14:29 | CP.PCM.CON ---
History of Present Illness - History of Present Illness History of Present Illness: 42 year old male with PMH of endocarditis, history of pulmonary valve surgery, history of left foot MRSA infection, came in to [facility] [place] after he was recalled by the ED back since his 04/20 blood cx are showing gram positive cocci in 4 out of 4 bottles. At that time he presented with fever and chills associated with malaise and generalized weakness. He denies rhinorrhea, no sore throat, no cough , no SOB, no headache or dizziness, no nausea or vomiting, no chest pain, no palpitations, no abdominal pain, no diarrhea, no dysuria. He denies recent travel outside of [place] in the past 3 months, no travel to wooded areas, denies animal contacts, denies insect or tick bites. He admits that he has "rotten teeth" and is meaning to see a dentist. Infectious diseases consult is requested to further evaluate and manage. Review of Systems - Review of Systems All systems: reviewed and no additional remarkable complaints except (as per HPI ) Past Patient History - Infectious Disease Hx of Infectious Diseases: None - Past Social History Smoking Status: Never Smoked - CARDIAC Hx Cardiac Disorders: Yes Other/Comment: ross procedure. Endocarditis. pulmonary gray replacement - PULMONARY Hx Respiratory Disorders: No Hx Asthma: Yes (as a child) - NEUROLOGICAL HX Cerebrovascular Accident: Yes (1999, no deficits) - HEENT Hx HEENT Problems: No - RENAL Hx Chronic Kidney Disease: No - ENDOCRINE/METABOLIC Hx Endocrine Disorders: No - HEMATOLOGICAL/ONCOLOGICAL Hx Blood Disorders: No - INTEGUMENTARY Hx Psoriasis: Yes (pt thinks he has psoriasis) - MUSCULOSKELETAL/RHEUMATOLOGICAL Hx Musculoskeletal Disorders: No Hx Falls: No - GASTROINTESTINAL Hx Gastrointestinal Disorders: No - GENITOURINARY/GYNECOLOGICAL Hx Genitourinary Disorders: No - PSYCHIATRIC Hx Psychophysiologic Disorder: No Hx Substance Use: No - SURGICAL HISTORY Hx Surgeries: Yes (valve replacement 2000) Hx Open Heart Surgery: Yes (valve replacement) - ANESTHESIA Hx Anesthesia: Yes Hx Anesthesia Reactions: No Hx Malignant Hyperthermia: No Meds Allergies/Adverse Reactions: Allergies Allergy/AdvReac Type Severity Reaction Status Date / Time ragweed pollen AdvReac RASH Verified 04/22/18 12:16 - Medications Medications: Current Medications Sodium Chloride (Sodium Chloride 0.9%) 1,000 mls @ 100 mls/hr IV .Q10H [facility] Last Admin: 04/22/18 15:16 Dose: 100 mls/hr Physical Exam - Constitutional Appears: Non-toxic, Chronically Ill - Head Exam Head Exam: NORMAL INSPECTION - ENT Exam ENT Exam: Mucous Membranes Moist Additional comments: poor dentition - Neck Exam Neck exam: Negative for: Lymphadenopathy, Meningismus - Respiratory Exam Respiratory Exam: Decreased Breath Sounds - Cardiovascular Exam Cardiovascular Exam: +S1, +S2 - GI/Abdominal Exam GI & Abdominal Exam: Soft. absent: Tenderness Results - Vital Signs Recent Vital Signs: Last Vital Signs Temp 100.5 F H 04/22/18 15:32 Pulse 91 H 04/22/18 15:33 Resp 18 04/22/18 15:32 BP 115/63 04/22/18 15:32 Pulse Ox 99 04/22/18 14:32 - Labs Result Diagrams: 04/23/18 06:45 04/23/18 06:45 Labs: Laboratory Results - last 24 hr 04/22/18 15:11 Urine Color Light yellow Urine Appearance Clear Urine pH 6.5 Ur Specific [place] 1.015 Urine Protein Trace H Urine Glucose (UA) Negative Urine Ketones 15 H Urine Blood Negative Urine Nitrate Negative Urine Bilirubin Negative Urine Urobilinogen >=8.0 Ur Leukocyte Esterase Negative Urine RBC 0 - 2 Urine WBC 0 - 2 Ur Epithelial Cells None Urine Bacteria Few Assessment & Plan - Assessment and Plan (Free Text) Plan: Assessment Sepsis due to gram positive cocci in chains bacteremia, R/O endocarditis in this patient with history of endocarditis and with poor dentition history of pulmonary valve surgery history of left foot MRSA infection Plan started Vancomycin pending identification and sensitivities of the bacteria in the blood; repeated blood cx yesterday will get Vanco trough before the dose this evening will check HIV test will monitor clinically
[2018-04-24] MEDS: Sodium Chloride 0.9% 1,000 ML IV SCH ×4 (00:12→21:34)
[2018-04-24] MEDS: Vancomycin 1gm in NS 250ml 1 GM/250 ML BAG IVPB SCH ×2 (01:31→13:20)
--- NOTE | 2018-04-24 02:45 | CON ---
DATE: 04/23/2018 REASON FOR CONSULTATION: Rule out endocarditis. BRIEF CLINICAL HISTORY: This is a 42-year-old male born with bicuspid aortic valve, aortic stenosis, aortic regurgitation, status post multiple balloon valvuloplasty at the age of 11 to 15. Later on, patient in 1999, has Ross procedure done with pulmonary valve transplant to the aortic valve replaced and the cadaver valve was placed in the pulmonary position. Patient in 2008, had endocarditis being treated for 4 weeks of antibiotics. Recently, patient came to the emergency room Saturday with complaining of fever, chills and shaking. Blood culture was drawn, and ultimately patient was sent home. Later on, the blood culture grew Gram-positive cocci, so the patient called for admission. Now, the repeat blood culture is still growing positive, but the patient feels a lot better. Cardiac consult was called to rule out endocarditis. Patient denies any chest pain. Denies any shortness of breath. Denies any palpitation. PAST HISTORY: Significant for bicuspid aortic valve with aortic stenosis and aortic regurgitation, born with bicuspid aortic valve, status post multiple balloon valvuloplasty for aortic valve. Later on, patient had aortic valve replaced by pulmonary valve called Ross procedure and patient got cadaver pulmonary valve. He said the pulmonary valve is and stenosed, and is being evaluated for TAVR of the pulmonary valve at [facility]. History of endocarditis in 2008. FAMILY HISTORY: Nothing significant. Grandfather has heart condition, but the mom and dad have no significant coronary artery disease. PAST SURGICAL HISTORY: As mentioned, had Ross procedure and replacement of the pulmonary valve by cadaver valve and aortic valve replaced by [place] pulmonary valve. Prior to that, patient had multiple balloon valvuloplasty for bicuspid aortic valve. SOCIAL HISTORY: Denies any history of alcohol abuse. ALLERGIES: NO KNOWN DRUG ALLERGY. CURRENT MEDICATIONS: Taking baby aspirin. REVIEW OF SYSTEMS: As per HPI. PHYSICAL EXAMINATION: VITAL SIGNS: Temperature afebrile, heart rate 60, blood pressure 104/66. HEENT: PERRLA. Extraocular muscles intact. NECK: Supple. No carotid bruit or thyromegaly. CHEST: Clear to auscultation. HEART: S1 and S2 regular. ABDOMEN: Soft. EXTREMITIES: Clubbing and cyanosis, negative. LABORATORY DATA: hematocrit 43.4, platelet count 56. Chemistry showed sodium 140, potassium 4.2, chloride 103, carbon dioxide 26, anion gap of 16, BUN is 8, creatinine 0.8. Blood culture, positive Gram-positive cocci on 04/22/2018. RECOMMENDATION: We will repeat echo. We will do ESR, sed rate, and repeat the blood culture. The blood culture remains positive, clinically suspicious and consider ISAÍAS, discussed with the patient at length. We will follow up with you. Thank you, Dr. Rizzo, for providing us the opportunity in taking care of the patient, Clint Killain. Adrienne Moffett MD
[2018-04-24 06:34] LABS: BASO # 0.02 K/mm3 (0.0-2.0); BASO % 0.9 % (0.0-3.0); EOS % 1.3 % (1.5-5.0); GRAN # 0.77 (1.4-6.5); GRAN % 32.7 % (50.0-68.0); HEMOGLOBIN 14.7 g/dL (14.0-18.0); LYMPH # 1.1 (1.2-3.4); LYMPH % 45.1 % (22.0-35.0); MEAN CELL VOLUME 84.2 fl (80.0-105.0); MEAN CORPUSCULAR HEMOGLOBIN 29.5 pg (25.0-35.0); MEAN PLATELET VOLUME 12.9 fl (7.0-11.0); MONO # 0.5 (0.1-0.6); RBC 4.99 10^6/uL (3.5-6.1); RED CELL DISTRIBUTION WIDTH 12.9 % (11.5-14.5)
[2018-04-24 06:37] LABS: WHITE BLOOD COUNT 2.4 10^3/ul (4.5-11.0)
[2018-04-24 06:44] LABS: IRON 156 ug/dL (45-180)
[2018-04-24 06:47] LABS: BLOOD UREA NITROGEN 9 mg/dL (7-21); CALCIUM 8.9 mg/dL (8.4-10.5); GFR AFRICAN-AMERICAN > 60; GFR NON-AFRICAN AMERICAN > 60; HDL CHOLESTEROL 26 mg/dL (29-60)
[2018-04-24 06:56] LABS: % IRON SATURATION 68 % (20-55); TOTAL IRON BINDING CAPACITY 230 ug/dL (261-462)
[2018-04-24 06:59] LABS: LDL CHOLESTEROL 70 mg/dL (0-129)
[2018-04-24 07:22] LABS: ALB/GLOB RATIO 1.5 (1.1-1.8); BILIRUBIN,DIRECT 0.4 mg/dL (0.0-0.4)
--- NOTE | 2018-04-24 07:45 | CP.PCM.PN ---
<Yadiel Grijalva - Last Filed: 04/24/18 13:12> Subjective - Date & Time of Evaluation Date of Evaluation: 04/24/18 Time of Evaluation: 07:00 - Subjective Subjective: GI Consult Note for Dr. Clive Girjalva, PGY-3 IM Patient seen and examined at bedside. Feeling better as compared to yesterday, but not back to baseline. Reports tolerating PO, had a BM overnight. No acute events overnight as per nursing. Objective - Vital Signs/Intake and Output Vital Signs (last 24 hours): Temp Pulse Resp BP Pulse Ox 98.0 F 66 18 102/67 100 04/24/18 06:00 04/24/18 06:00 04/24/18 06:00 04/24/18 06:00 04/24/18 06:00 Intake and Output: 04/24/18 04/24/18 06:59 18:59 Intake Total 660 1520 Output Total 7 Balance 653 1520 - Medications Medications: Current Medications Acetaminophen (Tylenol 325mg Tab) 650 mg PO Q4H PRN PRN Reason: temp greater than 100.4 Last Admin: 04/22/18 19:37 Dose: 650 mg Aspirin (Ecotrin) 81 mg PO DAILY [facility] Last Admin: 04/23/18 10:25 Dose: 81 mg Famotidine (Pepcid) 40 mg PO HS [facility] Last Admin: 04/23/18 22:31 Dose: 40 mg Sodium Chloride (Sodium Chloride 0.9%) 1,000 mls @ 100 mls/hr IV .Q10H [facility] Last Admin: 04/24/18 06:13 Dose: Not Given Vancomycin HCl (Vancomycin 1gm) 1 gm in 250 mls @ 167 mls/hr IVPB 0100,1300 STEPHANIE PRN Reason: Protocol Last Admin: 04/24/18 01:31 Dose: 167 mls/hr - Labs Labs: 04/24/18 05:40 04/24/18 05:00 PT 14.3 SECONDS (9.4-12.5) H 04/23/18 07:30 INR 1.24 (0.93-1.08) H 04/23/18 07:30 APTT 36.1 Seconds (25.1-36.5) 04/23/18 07:30 - Additional Findings Additional findings: - Constitutional Appears: Non-toxic, No Acute Distress - Head Exam Head Exam: ATRAUMATIC, NORMAL INSPECTION, NORMOCEPHALIC - Eye Exam Eye Exam: EOMI, Normal appearance. absent: Conjunctival injection, Scleral icterus Pupil Exam: absent: Fixed, Irregular - ENT Exam ENT Exam: Mucous Membranes Moist. absent: Mucous Membranes Dry - Neck Exam Neck exam: Positive for: Full Rom, Normal Inspection - Respiratory Exam Respiratory Exam: Clear to Auscultation Bilateral, NORMAL BREATHING PATTERN. absent: Accessory Muscle Use, Chest Wall Tenderness, Decreased Breath Sounds, Rales, Rhonchi, Wheezes - Cardiovascular Exam Cardiovascular Exam: RRR, +S1/2, No JVD - GI/Abdominal Exam GI & Abdominal Exam: Normal Bowel Sounds, Soft. absent: Diminished Bowel Sounds , Distended, Tenderness - Extremities Exam Extremities exam: Positive for: normal capillary refill, normal inspection, pedal pulses present. Negative for: calf tenderness, tenderness - Neurological Exam Neurological exam: Awake and Alert, Oriented x3, moving all extremities spontaneously - Psychiatric Exam Psychiatric exam: Normal Affect, Normal Mood - Skin Skin Exam: Dry, Intact, Normal Color, Warm no jaundice, petichea, osler's nodes, or janeway lesions appreciated on exam Assessment and Plan - Assessment and Plan (Free Text) Assessment: This is a 42 yo M with PMH of prior CVA without residual deficit and endocarditis s/p valvular replacement surgery (congenital bicuspid aortic valve removed, [place] pulmonic valve harvested and implanted as new aortic valve, cadaver pulmonic valve used for new pulmonic valve) presenting for possible new episode of endocarditis. GI was consulted today due to mildly elevated LFTs on admission blood work which were not present on ED bloodwork 2 days prior. Plan: prior CVA without residual deficit hx endocarditis s/p valvular replacement surgery -congenital bicuspid aortic valve removed, [place] pulmonic valve implanted as new aortic valve, cadaver pulmonic valve used for new pulmonic valve Elevated LFTs on representation Ddx: elevated LFTs 2/2 sepsis vs tylenol induced vs NSAID induced vs septic emboli in liver, possibly multifactorial -Abd US obtained, negative for ductal dilation, CBD 3mm, mild fatty liver -LFTs increased further slightly, AST 77, ALT 82, coags still pending -No acute GI intervention at this time, continue to trend daily LFTs and Coags to monitor hepatic function, avoid hepatotoxic drugs where reasonable Patient seen, reviewed, and examined with attending, Dr. Duffy <Kenton Duffy V - Last Filed: 04/24/18 22:17> Objective - Vital Signs/Intake and Output Vital Signs (last 24 hours): Temp Pulse Resp BP Pulse Ox 97.8 F 69 19 106/70 98 04/24/18 17:25 04/24/18 18:00 04/24/18 17:25 04/24/18 17:25 04/24/18 08:45 Intake and Output: 04/24/18 04/25/18 18:59 06:59 Intake Total 5210 Output Total 5 Balance 5205 - Medications Medications: Current Medications Acetaminophen (Tylenol 325mg Tab) 650 mg PO Q4H PRN PRN Reason: temp greater than 100.4 Last Admin: 04/22/18 19:37 Dose: 650 mg Aspirin (Ecotrin) 81 mg PO DAILY [facility] Last Admin: 04/24/18 10:29 Dose: 81 mg Famotidine (Pepcid) 40 mg PO HS [facility] Last Admin: 04/24/18 21:01 Dose: 40 mg Sodium Chloride (Sodium Chloride 0.9%) 1,000 mls @ 100 mls/hr IV .Q10H [facility] Last Admin: 04/24/18 21:34 Dose: Not Given Ceftriaxone Sodium (Rocephin 2 Gm Ivpb) 2 gm in 100 mls @ 100 mls/hr IVPB Q12 STEPHANIE PRN Reason: Protocol Stop: 05/22/18 22:01 Last Admin: 04/24/18 21:01 Dose: 100 mls/hr Daptomycin 310 mg/ Sodium (Chloride) 100 mls @ 200 mls/hr IV Q24H STEPHANIE Stop: 05/22/18 21:01 Last Admin: 04/24/18 21:33 Dose: 200 mls/hr - Labs Labs: 04/24/18 05:40 04/24/18 05:00 PT 13.1 SECONDS (9.4-12.5) H 04/24/18 08:30 INR 1.14 (0.93-1.08) H 04/24/18 08:30 APTT 31.7 Seconds (25.1-36.5) 04/24/18 08:30 Attending/Attestation - Attestation I have personally seen and examined this patient.: Yes I have fully participated in the care of the patient.: Yes I have reviewed all pertinent clinical information, including history, physical exam and plan: Yes Notes (Text): This is an addendum to GI progress report dictated by the Machine Try Out Setter.The patient was seen and examined earlier. Medical records, lab studies, imagings were reviewed. Last 24 hours events reviewed. Agreed with the above treatment plan as outlined in Machine Try Out Setter 's notes the with the addition of the following mildly elevated LFTmainly transaminases On examination abdomen soft no tenderness Plan for ISAÍAS on Continue antibiotics follow-up LFT 04/24/18 22:15
--- NOTE | 2018-04-24 08:39 | HP ---
The patient is 42 years old male. The patient was seen and examined on the bedside on 04/23/2018. CHIEF COMPLAINT: Abnormal blood cultures. HISTORY OF PRESENT ILLNESS: The patient, Clint Killian, 42-year-old male with past medical history of valvular cardiac surgery, history of endocarditis, history of CVA. Came to the Emergency Department actually on 04/20/2018 and blood culture was done. Blood culture was reportedly positive and the patient was called at home when there was provided and stated he felt better on Monday, but still was running fever of 102 on Monday and 100 degrees this morning, day of admission. He denies cough, shortness of breath. Denies rash. He denies abdominal pain. He states his abdomen feels like my food is not going down, but he denies any nausea, vomiting, hematuria, hematochezia. He reported decreased appetite. No neck pain. No rash. No sore throat. No visual changes. Denies abdominal pain, back pain. No bruising. Denies blood in the urine or stool. PAST MEDICAL HISTORY: Endocarditis, history of MRSA in the left foot 9 years ago, history of valve replacement in 2000 at [facility]. FAMILY HISTORY: Father and mother, noncontributory. HABITS: Never smoked. No drugs. No ethanol. ALLERGIES: THE PATIENT IS ALLERGIC WITH RAGWEED POLLEN ADVERSE REACTIONS. HOME MEDICATIONS: Aspirin. REVIEW OF SYSTEMS: The patient is seen and examined on the bedside in his room, looking comfortable. Feeling fatigue, fever, absent weight change. No visual changes. No eye pain. No sore throat, sinus congestion. Absent shortness of breath, coughing, wheezing. Absent chest pain, edema, orthopnea or syncope. No appetite change. No dysuria or frequency. No arthralgia. No headache, dizziness or focal weakness. PHYSICAL EXAMINATION: VITAL SIGNS: Temperature 99, pulse is 90, respiratory rate 16, blood pressure . HEENT: Head normocephalic, atraumatic. Eyes PERRLA. Extraocular muscles intact. Conjunctivae clear. Nose patent. Mucous membrane moist. NECK: Supple. No carotid bruit. No JVD or thyromegaly. CHEST: Bilaterally symmetrical. HEART: S1 and S2 positive. LUNGS: Clear to auscultation. ABDOMEN: Soft. Bowel sounds positive. No organomegaly. EXTREMITIES: No edema. No cyanosis. NEUROLOGICAL: The patient is awake and alert. Moving all 4 extremities. No focal deficits. LABORATORY DATA: White blood cells 3.7, hemoglobin 16.1, hematocrit 46, platelets 80. Sodium 138, potassium 4.3, BUN 7, creatinine 0.8, glucose 110. ASSESSMENT AND PLAN: Mr. Clint Killian, 42-year-old male with leukopenia, thrombocytopenia, history of valvular replacement. Came in to [facility] emergency room with fever. Blood culture was done. He felt better, went home. Later on, blood cultures came positive. The patient was contacted by ER physician. Came to know the patient has still fever, advised to come in the hospital. Now, the patient has bacteremia, elevated liver enzymes, fever and chills. Positive blood cultures. Rule out endocarditis, history of endocarditis. Seen by Dr. Fernando Bazan, Infectious Disease. Getting antibiotics. History of pulmonary valve surgery. History of left foot methicillin-resistant Staphylococcus aureus infection. Sepsis due to gram-positive cocci in chains, bacteremia, rule out endocarditis in this patient with history of endocarditis and with poor dentition. History of heart surgery. Started vancomycin. Pending identification and sensitivity of the bacteremia in the blood. Repeat blood culture yesterday, waiting for the result. We will get vancomycin trough before the dose of this evening. We will check human immunodeficiency virus status. We will follow up. GI, deep venous thrombosis prophylaxis. Yolanda Rizzo MD
[2018-04-24 08:51] LABS: INR 1.14 (0.93-1.08); PARTIAL THROMBOPLASTIN TIME 31.7 Seconds (25.1-36.5); PROTHROMBIN TIME 13.1 SECONDS (9.4-12.5)
--- NOTE | 2018-04-24 11:56 | CARD ---
APPROVED REPORT Date of service: 04/24/2018 EXAM: Two-dimensional and M-mode echocardiogram with Doppler and color Doppler. INDICATION LV Function:SystolicDiastolic 2D DIMENSIONS Left Atrium (2D)2.8 (1.6-4.0cm)IVSd1.4 (0.7-1.1cm) LVDd3.8 (3.9-5.9cm)PWd1.1 (0.7-1.1cm) LVDs2.7 (2.5-4.0cm)FS (%) 29.7 % LVEF (%)57.5 (>50%) M-Mode DIMENSIONS Aortic Root3.60 (2.2-3.7cm)Aortic Cusp Exc.1.80 (1.5-2.0cm) Aortic Valve AoV Peak Yayjbuvb393.0cm/Francisca Peak GR.7mmHgLVOT Peak Nikxdkay76.7cm/s LVOT VTI18.40cm Mitral Valve E/A ratio0.0 TDI E/Lateral E'0.0E/Medial E'0.0 Pulmonary Valve PV Peak Lpjcmtpp570.0cm/sPV Peak Grad.22mmHg Tricuspid Valve TR Peak Xqejrdnp357mz/sRAP [id number] Peak Gr.32mmHg [id number] LEFT VENTRICLE The left ventricle is normal size. There is mild concentric left ventricular hypertrophy. The left ventricular function is normal.EF-55-60% There is normal LV segmental wall motion. The left ventricular diastolic function is normal. No left ventricle thrombus noted on this study. There is no ventricular septal defect visualized. There is no left ventricular aneurysm. There is no mass noted in the left ventricle. RIGHT VENTRICLE The right ventricle is mildly to moderately dilated. There is normal right ventricular wall thickness. Systolic function is mildly to moderately reduced. ATRIA The left atrium size is normal. The right atrium size is normal. The interatrial septum is intact with no evidence for an atrial septal defect. AORTIC VALVE The aortic valve is thickened but opens well. The aortic valve is moderately sclerotic. There is trace to mild aortic regurgitation. There is no aortic valvular stenosis. There is no aortic valvular vegetation. MITRAL VALVE The mitral valve is thickened but opens well. Mitral regurgitation is mild. There is no mitral valve stenosis. There is no evidence of mitral valve prolapse. TRICUSPID VALVE The tricuspid valve leaflets are thickened , but open well. There is mild tricuspid regurgitation.RVSP-42 mmof Hg. There is no tricuspid valve stenosis. There is no tricuspid valve prolapse or vegetation. PULMONIC VALVE The pulmonic valve is mildly thickened. There is mild pulmonic valvular regurgitation. There is no pulmonic valvular stenosis. GREAT VESSELS The aortic root is normal in size. The ascending aorta is normal in size. The pulmonary artery is normal. The IVC is normal in size and collapses >50% with inspiration. PERICARDIAL EFFUSION There is no pleural effusion. There is no pericardial effusion. <Conclusion> The left ventricle is normal size. There is mild concentric left ventricular hypertrophy. There is trace to mild aortic regurgitation. Mitral regurgitation is mild. There is mild tricuspid regurgitation.RVSP-42 mmof Hg. There is mild pulmonic valvular regurgitation. The IVC is normal in size and collapses >50% with inspiration. There is no pericardial effusion. no vegetation or thrombus noted S/p Ross procedure ( [place] pulmonary valve in aortic position and Cadaver pulmonary valve replacement) for bicuspid aortic valve.
[2018-04-24 13:22] LABS: FOLATE 5.8 ng/mL
--- NOTE | 2018-04-24 13:29 | PN ---
DATE: 04/24/2018 REASON FOR THE CONSULTATION: Rule out endocarditis. SUBJECTIVE: The patient denies any chest pain, shortness of breath or any palpitation. Feels a lot better. OBJECTIVE: GENERAL: Not in any apparent distress, sleeping, on way for echo. VITAL SIGNS: Temperature afebrile, heart rate 62, blood pressure 100/63. HEENT: PERRLA. Extraocular muscles intact. NECK: Supple. No carotid bruit. No thyromegaly. CHEST: Clear to auscultation. HEART: S1 and S2 regular. ABDOMEN: Soft. EXTREMITIES: Clubbing and cyanosis negative. LABORATORY DATA: Blood workup as follows; WBC 2.4, hemoglobin 14, hematocrit 42, platelet count 79. Chemistry shows sodium 141, potassium 4.1, chloride 103, carbon dioxide 27, anion gap of 14, BUN 9, creatinine 0.9. Sed rate is 9. IMPRESSION: A 42-year-old male with past medical history significant for bicuspid aortic valve by , multiple valvuloplasty and later on, the patient had Ross procedure done at [facility] in 1999 and cadaver valve is placed at pulmonary position, history of endocarditis in 2008, history of a stroke, cerebrovascular accident in the past. Admitted with fever symptoms and was sent home. Blood culture found to be positive. The patient was readmitted for treatment for endocarditis. Cardiology consult was called for endocarditis. The patient persistent gram-positive cocci. PLAN: We will review sed rate ordered, awaiting for the sed rate. We will get echo and repeat blood culture. If the echo is clear all the valve if suspicious or cannot see because of prosthetic valve, suggest a ISAÍAS on . Discussed with the patient. Reviewed the sed rate when it is available. Follow up repeat blood culture. 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 We will follow with you. Interim, continue broad-spectrum antibiotic as per ID. We will repeat stat 2 sets of blood cultures. TSH is 1.97 and total cholesterol 143, LDL 70, HDL 26, triglyceride 219. Thank you, Dr. Rizzo, for providing us the opportunity in taking care of the patient, Clint Killian. Adrienne Moffett MD [facility] # [id number]
[2018-04-24] MEDS ORDERED: DAPTOmycin 500 mg Inj (Cubicin) IV SCH (20:15)
[2018-04-24] MEDS: cefTRIAXone 2 GM IN NS 2 GM/100 ML BAG IVPB SCH (21:01)
--- NOTE | 2018-04-24 22:29 | PN ---
DATE: 04/24/2018 SUBJECTIVE: The patient is [id number] male. The patient was seen and examined on the bedside, looking comfortable, better compared to yesterday, but still gets easily fatigued and tired. No more fever. Weight was at baseline. Did bowel movement today, sometime coughing and shortness of breath. No acute event happened overnight. No fever. No chills. No headache or dizziness. No hematuria or hematochezia. PHYSICAL EXAMINATION: VITAL SIGNS: Temperature 98, pulse 66, respiratory rate 18, blood hdtxbrva325/ 80 HEENT: Head normocephalic, atraumatic. Eyes PERRLA. Extraocular muscles intact. Conjunctivae clear. Nose patent. Mucous membrane moist. NECK: Supple. No carotid bruit. No JVD or thyromegaly. CHEST: Bilaterally symmetrical. HEART: S1 and S2 positive. LUNGS: Clear to auscultation. ABDOMEN: Soft. Bowel sounds positive. No organomegaly. EXTREMITIES: No edema. No cyanosis. NEUROLOGICAL: The patient is awake and alert. Moving all 4 extremities. No focal deficits. MEDICATIONS: Tylenol, Ecotrin, Pepcid, NS, vancomycin. LABORATORY DATA: White blood cells 2.4, hemoglobin 10.7, hematocrit 42, platelets 79. Sodium 141, potassium 4.1, BUN 9, creatinine 0.6, glucose 85. ASSESSMENT AND PLAN: Mr. Clint Killian is a [id number] male with leukopenia, thrombocytopenia with a history of prior cerebrovascular accident without residual deficit, endocarditis, history of valvular replacement surgery, congenital bicuspid aortic valve removed and [place] pulmonic valve harvested and implanted as new aortic valve, cadaver pulmonic valve used for new pulmonic valve presenting for possibly new episode of endocarditis. The patient's liver function test was elevated so called gastrointestinal consult. The patient is going for transesophageal echocardiography tomorrow to rule out endocarditis. We will plan about antibiotics duration after transesophageal echocardiography. Abdominal ultrasound obtained negative for ductal dilatation and common bile duct mild fatty liver. Liver function test is trending up. No acute gastrointestinal intervention needed at this time. Continue trend of liver function tests and hepatotoxic drugs. I appreciated Dr. Duffy and Dr. Moffett's input. Gastrointestinal, deep venous thrombosis prophylaxis with labs. We will follow up. Yolanda Rizzo MD [facility] # [id number] MARNIE
[2018-04-25] MEDS: Sodium Chloride 0.9% 1,000 ML IV SCH ×4 (00:41→21:40)
[2018-04-25 06:43] LABS: BASO # 0.02 K/mm3 (0.0-2.0); BASO % 0.8 % (0.0-3.0); EOS # 0.1 (0.0-0.7); EOS % 2.4 % (1.5-5.0); GRAN # 0.91 (1.4-6.5); GRAN % 37.2 % (50.0-68.0); HEMOGLOBIN 13.9 g/dL (14.0-18.0); LYMPH # 1.1 (1.2-3.4); LYMPH % 45.7 % (22.0-35.0); MEAN CELL VOLUME 85.1 fl (80.0-105.0); MEAN CORPUSCULAR HEMOGLOBIN 29.3 pg (25.0-35.0); MEAN CORPUSCULAR HGB CONC 34.4 g/dl (31.0-37.0); MEAN PLATELET VOLUME 12.9 fl (7.0-11.0); MONO # 0.3 (0.1-0.6); MONO % 13.9 % (1.0-6.0); RBC 4.75 10^6/uL (3.5-6.1); RED CELL DISTRIBUTION WIDTH 12.8 % (11.5-14.5)
[2018-04-25 06:51] LABS: INR 1.11 (0.93-1.08); PARTIAL THROMBOPLASTIN TIME 31.3 Seconds (25.1-36.5); PROTHROMBIN TIME 12.8 SECONDS (9.4-12.5)
[2018-04-25 07:02] LABS: ALB/GLOB RATIO 1.5 (1.1-1.8); ALBUMIN 3.7 g/dL (3.0-4.8); ALT/SGPT 129 U/L (7-56); AST/SGOT 108 U/L (17-59); BLOOD UREA NITROGEN 8 mg/dL (7-21); CALCIUM 8.9 mg/dL (8.4-10.5); GFR AFRICAN-AMERICAN > 60; GFR NON-AFRICAN AMERICAN > 60
[2018-04-25 07:17] LABS: WHITE BLOOD COUNT 2.5 10^3/ul (4.5-11.0)
--- NOTE | 2018-04-25 09:07 | CP.PCM.PN ---
Subjective - Date & Time of Evaluation Date of Evaluation: 04/25/18 Time of Evaluation: 08:00 - Subjective Subjective: GI Consult Note for Dr. Clive Grijalva, PGY-3 IM Patient seen and examined at bedside. Feeling better overall, pending ISAÍAS tomorrow as per Cardio. No acute events overnight as per nursing. Objective - Vital Signs/Intake and Output Vital Signs (last 24 hours): Temp Pulse Resp BP Pulse Ox 97.9 F 61 20 102/67 98 04/25/18 06:00 04/25/18 06:00 04/25/18 06:00 04/25/18 06:00 04/25/18 06:00 Intake and Output: 04/25/18 04/25/18 06:59 18:59 Intake Total 1380 Output Total 0 Balance 1380 - Medications Medications: Current Medications Acetaminophen (Tylenol 325mg Tab) 650 mg PO Q4H PRN PRN Reason: temp greater than 100.4 Last Admin: 04/22/18 19:37 Dose: 650 mg Aspirin (Ecotrin) 81 mg PO DAILY [facility] Last Admin: 04/24/18 10:29 Dose: 81 mg Famotidine (Pepcid) 40 mg PO HS [facility] Last Admin: 04/24/18 21:01 Dose: 40 mg Sodium Chloride (Sodium Chloride 0.9%) 1,000 mls @ 100 mls/hr IV .Q10H [facility] Last Admin: 04/25/18 02:18 Dose: Not Given Ceftriaxone Sodium (Rocephin 2 Gm Ivpb) 2 gm in 100 mls @ 100 mls/hr IVPB Q12 STEPHANIE PRN Reason: Protocol Stop: 05/22/18 22:01 Last Admin: 04/24/18 21:01 Dose: 100 mls/hr Daptomycin 310 mg/ Sodium (Chloride) 100 mls @ 200 mls/hr IV Q24H STEPHANIE Stop: 05/22/18 21:01 Last Admin: 04/24/18 21:33 Dose: 200 mls/hr - Labs Labs: 04/25/18 06:00 04/25/18 06:00 PT 12.8 SECONDS (9.4-12.5) H 04/25/18 06:00 INR 1.11 (0.93-1.08) H 04/25/18 06:00 APTT 31.3 Seconds (25.1-36.5) 04/25/18 06:00 - Additional Findings Additional findings: - Constitutional Appears: Non-toxic, No Acute Distress - Head Exam Head Exam: ATRAUMATIC, NORMAL INSPECTION, NORMOCEPHALIC - Eye Exam Eye Exam: EOMI, Normal appearance. absent: Conjunctival injection, Scleral icterus Pupil Exam: absent: Fixed, Irregular - ENT Exam ENT Exam: Mucous Membranes Moist. absent: Mucous Membranes Dry - Neck Exam Neck exam: Positive for: Full Rom, Normal Inspection - Respiratory Exam Respiratory Exam: Clear to Auscultation Bilateral, NORMAL BREATHING PATTERN. absent: Accessory Muscle Use, Chest Wall Tenderness, Decreased Breath Sounds, Rales, Rhonchi, Wheezes - Cardiovascular Exam Cardiovascular Exam: RRR, +S1/2, No JVD, Loud diastolic murmur most prominent at R and L 2nd intercostal spaces (L>R) - GI/Abdominal Exam GI & Abdominal Exam: Normal Bowel Sounds, Soft. absent: Diminished Bowel Sounds , Distended, Tenderness - Extremities Exam Extremities exam: Positive for: normal capillary refill, normal inspection, pedal pulses present. Negative for: calf tenderness, tenderness - Neurological Exam Neurological exam: Awake and Alert, Oriented x3, moving all extremities spontaneously - Psychiatric Exam Psychiatric exam: Normal Affect, Normal Mood - Skin Skin Exam: Dry, Intact, Normal Color, Warm no jaundice, petichea, osler's nodes, or janeway lesions appreciated on exam Assessment and Plan - Assessment and Plan (Free Text) Assessment: This is a 42 yo M with PMH of prior CVA without residual deficit and endocarditis s/p valvular replacement surgery (congenital bicuspid aortic valve removed, [place] pulmonic valve harvested and implanted as new aortic valve, cadaver pulmonic valve used for new pulmonic valve) presenting for possible new episode of endocarditis. GI was consulted today due to mildly elevated LFTs on admission blood work which were not present on ED bloodwork 2 days prior to this admission. Plan: prior CVA without residual deficit hx endocarditis s/p valvular replacement surgery -congenital bicuspid aortic valve removed, [place] pulmonic valve implanted as new aortic valve, cadaver pulmonic valve used for new pulmonic valve Elevated LFTs on representation Ddx: elevated LFTs 2/2 sepsis vs drug induced (tylenol vs NSAID), possibly multifactorial -Abd US obtained, negative for ductal dilation, CBD 3mm, mild fatty liver -LFTs increased again, AST 108, ALT 129, coags improved -No acute GI intervention at this time, continue to trend daily LFTs and Coags to monitor hepatic function, avoid hepatotoxic drugs where reasonable Patient seen, reviewed, and examined with attending, Dr. Duffy
[2018-04-25] MEDS: cefTRIAXone 2 GM IN NS 2 GM/100 ML BAG IVPB SCH ×2 (10:19→21:17)
--- NOTE | 2018-04-25 13:36 | PN ---
DATE: 04/25/2018 REASON FOR THE CONSULTATION AND FOLLOWUP: Rule out endocarditis. SUBJECTIVE: The patient denies any chest pain, shortness of breath or any palpitation. OBJECTIVE: GENERAL: Not in any apparent distress, lying flat in the bed. VITAL SIGNS: Temperature afebrile, heart rate 61, blood pressure 102/67. HEENT: PERRLA. Extraocular muscles intact. NECK: Supple. No carotid bruit. No thyromegaly. CHEST: Clear to auscultation. HEART: S1 and S2 regular. ABDOMEN: Soft. EXTREMITIES: Clubbing and cyanosis negative. LABORATORY DATA: Blood workup as follows: WBC 2.5, hemoglobin 13.9, hematocrit of 40.4, platelet count 93. Chemistry shows sodium 142, potassium 4.2, chloride 103, carbon dioxide 28, anion gap of 16, BUN 8, creatinine 0.7. Blood culture on admission on 04/22/2018 with Gram-positive cocci positive. Yesterday, the patient underwent echocardiography. Transthoracic echo did not show any evidence of endocarditis. The patient has a Ross procedure done with [place] pulmonary valve in the aortic position and cadaver valve in pulmonary position, which is with significant regurgitation. RECOMMENDATIONS: Continue antibiotic. Discussed with the patient. We will do the ISAÍAS tomorrow. According to the patient, he is being followed at [place] and needs TAVR for pulmonary valve replacement. Also, today and yesterday as well the patient needs dental workup before pulmonary valve because probably that could be the source for recurrent endocarditis. History of endocarditis in 2008 in the past and the patient was treated with 4 weeks of IV antibiotic. History of bicuspid aortic valve at and multiple balloon valvuloplasty started at the age of 11 and later on the patient had Ross procedure in 1999 at [facility]. I explained above to the patient. The patient needs dental workup before next valve intervention. Adrienne Moffett MD
--- NOTE | 2018-04-25 13:53 | CP.PCM.PN ---
Subjective - Date & Time of Evaluation Date of Evaluation: 04/25/18 Time of Evaluation: 09:55 - Subjective Subjective: No fevers, not in distress, no chest pain or palpitations. No nausea, muscle aches or diarrhea. Objective - Vital Signs/Intake and Output Vital Signs (last 24 hours): Temp Pulse Resp BP Pulse Ox 97.9 F 61 20 102/67 98 04/25/18 06:00 04/25/18 06:00 04/25/18 06:00 04/25/18 06:00 04/25/18 06:00 Intake and Output: 04/25/18 04/25/18 06:59 18:59 Intake Total 1380 Output Total 0 Balance 1380 - Medications Medications: Current Medications Acetaminophen (Tylenol 325mg Tab) 650 mg PO Q4H PRN PRN Reason: temp greater than 100.4 Last Admin: 04/22/18 19:37 Dose: 650 mg Aspirin (Ecotrin) 81 mg PO DAILY [facility] Last Admin: 04/24/18 10:29 Dose: 81 mg Famotidine (Pepcid) 40 mg PO HS [facility] Last Admin: 04/24/18 21:01 Dose: 40 mg Sodium Chloride (Sodium Chloride 0.9%) 1,000 mls @ 100 mls/hr IV .Q10H [facility] Last Admin: 04/25/18 02:18 Dose: Not Given Ceftriaxone Sodium (Rocephin 2 Gm Ivpb) 2 gm in 100 mls @ 100 mls/hr IVPB Q12 [facility] PRN Reason: Protocol Stop: 05/22/18 22:01 Last Admin: 04/24/18 21:01 Dose: 100 mls/hr Daptomycin 310 mg/ Sodium (Chloride) 100 mls @ 200 mls/hr IV Q24H [facility] Stop: 05/22/18 21:01 Last Admin: 04/24/18 21:33 Dose: 200 mls/hr - Labs Labs: 04/25/18 06:00 04/25/18 06:00 PT 12.8 SECONDS (9.4-12.5) H 04/25/18 06:00 INR 1.11 (0.93-1.08) H 04/25/18 06:00 APTT 31.3 Seconds (25.1-36.5) 04/25/18 06:00 - Constitutional Appears: Non-toxic, Chronically Ill - Head Exam Head Exam: NORMAL INSPECTION - ENT Exam ENT Exam: Mucous Membranes Moist - Neck Exam Neck Exam: absent: Meningismus - Respiratory Exam Respiratory Exam: Decreased Breath Sounds - Cardiovascular Exam Cardiovascular Exam: +S1, +S2 - GI/Abdominal Exam GI & Abdominal Exam: Soft. absent: Tenderness Assessment and Plan - Assessment and Plan (Free Text) Plan: Assessment Sepsis due to gram positive cocci in chains bacteremia, suspicious for endocarditis in this patient with history of endocarditis and with poor dentition history of pulmonary valve surgery history of left foot MRSA infection Plan continue Daptomycin pending identification and sensitivities of the bacteria in the blood; follow up repeat blood cx 2D echo is negative for vegetations - patient is scheduled for ISAÍAS tomorrow follow up HIV test will continue to monitor clinically
--- NOTE | 2018-04-26 01:10 | CON ---
DATE: 04/25/2018 REFERRING PHYSICIAN: Dr. Yolanda Rizzo. REASON FOR CONSULTATION: Shortness of breath. HISTORY OF PRESENT ILLNESS: This is a 42-year-old gentleman with a past medical history significant for valvular heart disease, has a congenital bicuspid aortic valve with aortic stenosis and regurgitation. It was a bicuspid valve. Because of symptomatic; he had a Ross procedure done in the past where aortic valve was replaced with a pulmonic valve and vice versa, which was done many years ago, presently having some issue with increased shortness of breath. He admits to have snoring at night, daytime sleepy, recently seen in emergency room with shaking chills and fever. Blood cultures are drawn and had a gram-positive cocci. Seen by Infectious Diseases, on antibiotics. Also seen by Cardiology, scheduled for transesophageal echo. Denied any chest pain. No nausea, vomiting, or diarrhea. No leg pain or leg swelling. PAST MEDICAL HISTORY: As per history of present illness. Also had a history of endocarditis in 2008. ALLERGIES: NONE KNOWN. SOCIAL HISTORY: Nonsmoker, nondrinker. FAMILY HISTORY: No cardiopulmonary disease. MEDICATIONS: He is on daptomycin 310 mg every 24 hours, Ecotrin 81 mg daily, Pepcid 40 mg daily, cefepime 2 g IV every 12 hours, IV fluid normal saline 100 mL/hour, Tylenol p.r.n. REVIEW OF SYSTEM: No headache, no rhinitis, not much cough, short of breath with exertion. Admit to have snoring. No chest pain. No nausea, vomiting, diarrhea. No leg pain or leg swelling. PHYSICAL EXAMINATION: GENERAL: No acute distress. VITAL SIGNS: Temperature is 98, heart rate 68, respiratory is 20, blood pressure 105/72, pulse ox 98% on room air. HEENT: Moist mucous membrane. Mallampati score is 3-4. NECK: Supple. No JVD. LUNGS: Have fair airflow. HEART: Has a murmur. ABDOMEN: Soft, nontender, no organomegaly. EXTREMITIES: There is no edema. NEUROLOGIC: Awake, alert, follows simple commands. LABORATORY DATA: Shows hemoglobin 13.9, hematocrit 40.4, WBC 2.5, platelet count is 93. INR 1.11. PTT is 31. Blood gases shows, which is VBG, pH 7.31, pCO2 is 53, pO2 of 25. Sodium 142, potassium 4.2, chloride is 103, bicarbonate is 28, BUN is 8, creatinine 0.7, glucose 81, calcium is 8.9, phosphorus 3.9, magnesium 2, AST 108, ALT 129, alk phos is 75. Albumin is 3.7. Urinalysis shows some ketones, wbc's 0 to 2. Vanco trough level is 8.5. HIV is nonreactive. Blood culture done on 04/22/2018, 1 out of 2 cultures has Streptococcus species. Repeat culture so far from yesterday, there is no growth. Had echocardiogram done yesterday, showed right ventricular systolic pressure is 42, mild concentric left ventricular hypertrophy, trace mild aortic regurg and suggested of Ross procedure. IMPRESSION AND PLAN: Valvular heart disease, diastolic cardiac dysfunction, pulmonary hypertension, questionable endocarditis, has gram-positive cocci in 1 out of 2 blood cultures. Also suspected sleep apnea syndrome. Continue antibiotics. Cardiology followup. Sleep apnea precaution if sedated, close cardiopulmonary monitoring while sedated. Once improved outpatient, will need attended sleep study. Thank you and we will follow with you. Adrienne Gunter MD
--- NOTE | 2018-04-26 01:30 | PN ---
DATE: 04/25/2018 SUBJECTIVE: The patient is a 42-year-old male. The patient was seen and examined on the bedside on 04/25/2018, looking comfortable. No more fever. Not in distress. No chest pain, no palpitation. No nausea, vomiting or diarrhea. No hematuria or hematochezia. No headache, no dizziness. PHYSICAL EXAMINATION: VITAL SIGNS: Temperature 97.9, pulse 51, respiratory rate 20, blood pressure 102/67, pulse oximetry 98. HEENT: Head normocephalic, atraumatic. Eyes PERRLA. Extraocular muscles intact. Conjunctivae clear. Nose patent. Mucous membrane moist. NECK: Supple. No carotid bruit. No JVD or thyromegaly. CHEST: Bilaterally symmetrical. HEART: S1 and S2 positive. LUNGS: Clear to auscultation. ABDOMEN: Soft. Bowel sounds positive. No organomegaly. EXTREMITIES: No edema. No cyanosis. NEUROLOGICAL: The patient is awake and alert. Moving all four extremities. No focal deficits. MEDICATIONS: Aspirin, Pepcid, sodium chloride, ceftriaxone, daptomycin. LABORATORY DATA: White blood cell is 2.5, hemoglobin 13.9, hematocrit 40.4, platelets 93. Sodium 142, potassium 4.2, BUN 8, creatinine 0.7, glucose 81. ASSESSMENT: Mr. Clint Killian is a 42-year-old male with leukopenia, anemia, thrombocytopenia, had sepsis due to Gram-positive cocci in chains, bacteremia suspicious of endocarditis in this patient with history of endocarditis with poor dentition, history of pulmonary valve surgery, history of left foot methicillin-resistant Staphylococcus aureus infection. PLAN: Continue daptomycin depending on the identification and sensitivities of the bacteria in the blood. A 2D echo is negative for vegetation. The patient is going for ISAÍAS tomorrow. HIV test is pending. According to Dr. Bazan, continue the antibiotics. Seen by Dr. Moffett, hospital laboratory technician. We will call Hematology consult for leukopenia and anemia. According to the patient, he is being followed up at [place] and needs TAVR for pulmonary valve replacement and the patient need dental workup before pulmonary valve because probably that could be the source of recurrent endocarditis. GI and DVT prophylaxis. Repeat labs. We will follow up. Yolanda Rizzo MD
--- NOTE | 2018-04-26 07:17 | CP.PCM.PN ---
Subjective - Date & Time of Evaluation Date of Evaluation: 04/26/18 Time of Evaluation: 06:10 - Subjective Subjective: Sleeping but easily awaken, no distress, denies chest pain Reason for consultation and follow up: Cardiac evaluation to rule out endocarditis. History of endocarditis 2008 and was treated with 4 weeks of antibiotics. history of bicuspid valve at and multiple balloon valvuloplasty started at age 11. Had ROSS procedure in 1999. Seen and examined by me and Dr. Moffett Objective - Vital Signs/Intake and Output Vital Signs (last 24 hours): Temp Pulse Resp BP Pulse Ox 97.6 F 71 20 89/59 L 98 04/26/18 06:00 04/26/18 06:00 04/26/18 06:00 04/26/18 06:00 04/26/18 06:00 Intake and Output: 04/26/18 04/26/18 06:59 18:59 Intake Total 0 Balance 0 - Medications Medications: Current Medications Acetaminophen (Tylenol 325mg Tab) 650 mg PO Q4H PRN PRN Reason: temp greater than 100.4 Last Admin: 04/22/18 19:37 Dose: 650 mg Aspirin (Ecotrin) 81 mg PO DAILY [facility] Last Admin: 04/25/18 10:19 Dose: 81 mg Famotidine (Pepcid) 40 mg PO HS [facility] Last Admin: 04/25/18 21:17 Dose: 40 mg Sodium Chloride (Sodium Chloride 0.9%) 1,000 mls @ 100 mls/hr IV .Q10H [facility] Last Admin: 04/25/18 21:40 Dose: 100 mls/hr Ceftriaxone Sodium (Rocephin 2 Gm Ivpb) 2 gm in 100 mls @ 100 mls/hr IVPB Q12 [facility]PH[facility]IE PRN Reason: Protocol Stop: 05/22/18 22:01 Last Admin: 04/25/18 21:17 Dose: 100 mls/hr - Labs Labs: 04/25/18 06:00 04/25/18 06:00 PT 12.8 SECONDS (9.4-12.5) H 04/25/18 06:00 INR 1.11 (0.93-1.08) H 04/25/18 06:00 APTT 31.3 Seconds (25.1-36.5) 04/25/18 06:00 - Constitutional Appears: No Acute Distress - Eye Exam Eye Exam: Periorbital tenderness - ENT Exam ENT Exam: Mucous Membranes Moist - Respiratory Exam Respiratory Exam: Decreased Breath Sounds, NORMAL BREATHING PATTERN - Cardiovascular Exam Cardiovascular Exam: +S1, +S2 Additional comments: Telemetry NSR 70's - GI/Abdominal Exam GI & Abdominal Exam: Soft, Normal Bowel Sounds - Exam Additional comments: continent - Extremities Exam Extremities Exam: Normal Capillary Refill - Neurological Exam Neurological Exam: Alert, Awake, Oriented x3 - Psychiatric Exam Psychiatric exam: Normal Affect - Skin Skin Exam: Dry, Warm Assessment and Plan - Assessment and Plan (Free Text) Assessment: A 42 year old male who came in to the ER 04/20/18 due to left foot infection and blood cultures showed gram positive cocci (MRSA infection). thus recalled to come back to [facility] for admission. consult was called to rule out endocarditis.History of endocarditis 2008 and was treated with 4 weeks of antibiotics. history of bicuspid valve at and multiple balloon valvuloplasty started at age 11. Had Ross procedure in 1999. He follows up at [facility] and claimed to have TAVR for pulmonary valve replacement. Needs dental work up for poor dentition.. For ISAÍAS today. Plan: Kept NPO For ISAÍAS today Afebrile ID on consult, on IV antibiotics Dental work up Continue current treatment Continue current medications Will follow up Plan and treatment discussed with Dr. Moffett
[2018-04-26 07:24] LABS: INR 1.13 (0.93-1.08); PARTIAL THROMBOPLASTIN TIME 33.3 Seconds (25.1-36.5)
[2018-04-26 07:26] LABS: ALB/GLOB RATIO 1.3 (1.1-1.8); ALBUMIN 3.6 g/dL (3.0-4.8); ALT/SGPT 135 U/L (7-56); AST/SGOT 87 U/L (17-59); BLOOD UREA NITROGEN 10 mg/dL (7-21); CALCIUM 8.7 mg/dL (8.4-10.5); GFR AFRICAN-AMERICAN > 60; GFR NON-AFRICAN AMERICAN > 60
[2018-04-26] MEDS: Sodium Chloride 0.9% 1,000 ML IV SCH ×2 (08:00→22:26)
--- NOTE | 2018-04-26 08:31 | CP.PCM.PN ---
<Clive,Osmelvil V - Last Filed: 04/26/18 23:34> Objective - Vital Signs/Intake and Output Vital Signs (last 24 hours): Temp Pulse Resp BP Pulse Ox 98.5 F 69 20 106/69 100 04/26/18 17:55 04/26/18 17:55 04/26/18 17:55 04/26/18 17:55 04/26/18 13:50 Intake and Output: 04/26/18 04/27/18 18:59 06:59 Intake Total 700 Balance 700 - Medications Medications: Current Medications Acetaminophen (Tylenol 325mg Tab) 650 mg PO Q4H PRN PRN Reason: temp greater than 100.4 Last Admin: 04/22/18 19:37 Dose: 650 mg Aspirin (Ecotrin) 81 mg PO DAILY [facility] Last Admin: 04/26/18 18:20 Dose: 81 mg Famotidine (Pepcid) 40 mg PO HS [facility] Last Admin: 04/26/18 22:24 Dose: 40 mg Sodium Chloride (Sodium Chloride 0.9%) 1,000 mls @ 100 mls/hr IV .Q10H [facility] Last Admin: 04/26/18 22:26 Dose: 100 mls/hr Ceftriaxone Sodium (Rocephin 2 Gm Ivpb) 2 gm in 100 mls @ 100 mls/hr IVPB Q12 [facility]PHANIE PRN Reason: Protocol Stop: 05/22/18 22:01 Last Admin: 04/26/18 22:24 Dose: 100 mls/hr - Labs Labs: 04/25/18 06:00 04/26/18 06:00 PT 13.0 SECONDS (9.4-12.5) H 04/26/18 06:00 INR 1.13 (0.93-1.08) H 04/26/18 06:00 APTT 33.3 Seconds (25.1-36.5) 04/26/18 06:00 Attending/Attestation - Attestation I have personally seen and examined this patient.: Yes I have fully participated in the care of the patient.: Yes I have reviewed all pertinent clinical information, including history, physical exam and plan: Yes Notes (Text): This is an addendum to GI progress report dictated by the Youth Program Director.The patient was seen and examined earlier. Medical records, lab studies, imagings were reviewed. Last 24 hours events reviewed. Agreed with the above treatment plan as outlined in Youth Program Director 's notes the with the addition of the following 04/26/18 23:34 <Yadiel Grijalva - Last Filed: 04/27/18 11:24> Subjective - Date & Time of Evaluation Date of Evaluation: 04/26/18 Time of Evaluation: 08:20 - Subjective Subjective: GI Consult Note for Dr. Clive Grijalva, PGY-3 IM Patient seen and examined s/p ISAÍAS, still somnolent, minimal ROS. No acute events overnight. Objective - Vital Signs/Intake and Output Vital Signs (last 24 hours): Temp Pulse Resp BP Pulse Ox 97.6 F 71 20 89/59 L 98 04/26/18 06:00 04/26/18 06:00 04/26/18 06:00 04/26/18 06:00 04/26/18 06:00 Intake and Output: 04/26/18 04/26/18 06:59 18:59 Intake Total 0 Balance 0 - Medications Medications: Current Medications Acetaminophen (Tylenol 325mg Tab) 650 mg PO Q4H PRN PRN Reason: temp greater than 100.4 Last Admin: 04/22/18 19:37 Dose: 650 mg Aspirin (Ecotrin) 81 mg PO DAILY [facility] Last Admin: 04/25/18 10:19 Dose: 81 mg Famotidine (Pepcid) 40 mg PO HS [facility] Last Admin: 04/25/18 21:17 Dose: 40 mg Sodium Chloride (Sodium Chloride 0.9%) 1,000 mls @ 100 mls/hr IV .Q10H [facility] Last Admin: 04/25/18 21:40 Dose: 100 mls/hr Ceftriaxone Sodium (Rocephin 2 Gm Ivpb) 2 gm in 100 mls @ 100 mls/hr IVPB Q12 [facility]PHANIE PRN Reason: Protocol Stop: 05/22/18 22:01 Last Admin: 04/25/18 21:17 Dose: 100 mls/hr - Labs Labs: 04/25/18 06:00 04/26/18 06:00 PT 13.0 SECONDS (9.4-12.5) H 04/26/18 06:00 INR 1.13 (0.93-1.08) H 04/26/18 06:00 APTT 33.3 Seconds (25.1-36.5) 04/26/18 06:00 - Additional Findings Additional findings: - Constitutional Appears: Non-toxic, No Acute Distress, Somnolent s/p ISAÍAS (likely residual from sedation for procedure) - Head Exam Head Exam: ATRAUMATIC, NORMAL INSPECTION, NORMOCEPHALIC - Eye Exam Eye Exam: Normal appearance. absent: Conjunctival injection, Scleral icterus Pupil Exam: absent: Fixed, Irregular - ENT Exam ENT Exam: Mucous Membranes Moist. absent: Mucous Membranes Dry - Neck Exam Neck exam: Positive for: Normal Inspection - Respiratory Exam Respiratory Exam: Clear to Auscultation Bilateral, NORMAL BREATHING PATTERN. absent: Accessory Muscle Use, Chest Wall Tenderness, Decreased Breath Sounds, Rales, Rhonchi, Wheezes - Cardiovascular Exam Cardiovascular Exam: RRR, +S1/2, No JVD, Loud diastolic murmur most prominent at R and L 2nd intercostal spaces (L>R) - GI/Abdominal Exam GI & Abdominal Exam: Normal Bowel Sounds, Soft. absent: Diminished Bowel Sounds , Distended, Tenderness - Extremities Exam Extremities exam: Positive for: normal inspection, pedal pulses present. - Neurological Exam Neurological exam: Somnolent s/p ISAÍAS (likely residual from sedation for procedure), minimal spontaneous movements appreciated - Psychiatric Exam Psychiatric exam: Unable to assess s/p ISAÍAS due to somnolence - Skin Skin Exam: Dry, Intact, Normal Color, Warm no jaundice, petichea, osler's nodes, or janeway lesions appreciated on exam Assessment and Plan - Assessment and Plan (Free Text) Assessment: This is a 42 yo M with PMH of prior CVA without residual deficit and endocarditis s/p valvular replacement surgery (congenital bicuspid aortic valve removed, [place] pulmonic valve harvested and implanted as new aortic valve, cadaver pulmonic valve used for new pulmonic valve) presenting for possible new episode of endocarditis. GI was consulted today due to mildly elevated LFTs on admission blood work which were not present on ED bloodwork 2 days prior to this admission. S/p ISAÍAS, pending official report Plan: prior CVA without residual deficit hx endocarditis s/p valvular replacement surgery -congenital bicuspid aortic valve removed, [place] pulmonic valve implanted as new aortic valve, cadaver pulmonic valve used for new pulmonic valve Elevated LFTs on representation Ddx: elevated LFTs 2/2 sepsis vs drug induced (tylenol vs NSAID), possibly multifactorial -Abd US obtained, negative for ductal dilation, CBD 3mm, mild fatty liver -AST improved, ALT slightly increased today, coags stable, Alk Phos and TBili wnl -No acute GI intervention at this time, continue to trend daily LFTs and Coags to monitor hepatic function, avoid hepatotoxic drugs where reasonable -S/p ISAÍAS today, pending official report -Heme-onc consulted for thrombocytopenia and leukopenia, likely from sepsis as per Heme-Onc resident note Patient seen, reviewed, and examined with attending, Dr. Duffy
--- NOTE | 2018-04-26 09:59 | CP.PCM.CON ---
History of Present Illness - History of Present Illness History of Present Illness: [place] Joseph DO, IM Resident PGY-1 Hematology/Oncology Consultation Note for Dr. Faustin Mr. Killian is a 42 year old male with endocarditis, congenital bicuspid aortic valve (s/p valve replacements around age 11), aortic stenosis, and L foot MRSA infection who presented to ED on 04/20/18 with fever, chills, joint pains, and loss of appetite which were similar to his prior symptoms of endocarditis. At that time blood cultures were sent and returned positive for gram positive cocci in chains. He was called with the results and he returned to the ED on for admission and treatment. He was found to be septic at that time with Tmax of 101.5. TTE was negative for vegetations but ISAÍAS is scheduled for this morning. ID and cardiology are following. He continues to endorse some joint pains in his elbows and knees which has improved. He denies fever, chills, night sweats, chest pain, SOB, cough, easy bruising, or bleeding, and skin changes. While here, he has been leukopenic and thrombocytopenic, prompting consult. Review of Systems - Review of Systems Review of Systems: A 12 point ROS was reviewed with patient and negative except as stated in HPI Past Patient History - Infectious Disease Hx of Infectious Diseases: None - Past Social History Smoking Status: Never Smoked - CARDIAC Other/Comment: endocarditis - PULMONARY Hx Respiratory Disorders: No Hx Asthma: Yes (as a child) - NEUROLOGICAL HX Cerebrovascular Accident: Yes (1999, no deficits) - HEENT Hx HEENT Problems: No - RENAL Hx Chronic Kidney Disease: No - ENDOCRINE/METABOLIC Hx Endocrine Disorders: No - HEMATOLOGICAL/ONCOLOGICAL Hx Blood Disorders: No - INTEGUMENTARY Hx Psoriasis: Yes (pt thinks he has psoriasis) - MUSCULOSKELETAL/RHEUMATOLOGICAL Other/Comment: h/o MRSA left foot wound - 9 yrs ago - GASTROINTESTINAL Hx Gastrointestinal Disorders: No - GENITOURINARY/GYNECOLOGICAL Hx Genitourinary Disorders: No - PSYCHIATRIC Hx Substance Use: No - SURGICAL HISTORY Hx Valve Replacement: Yes (2000 at [facility]) - ANESTHESIA Hx Anesthesia: Yes Hx Anesthesia Reactions: No Hx Malignant Hyperthermia: No Meds Allergies/Adverse Reactions: Allergies Allergy/AdvReac Type Severity Reaction Status Date / Time ragweed pollen AdvReac RASH Verified 04/22/18 12:16 - Medications Medications: Current Medications Acetaminophen (Tylenol 325mg Tab) 650 mg PO Q4H PRN PRN Reason: temp greater than 100.4 Last Admin: 04/22/18 19:37 Dose: 650 mg Aspirin (Ecotrin) 81 mg PO DAILY [facility] Last Admin: 04/25/18 10:19 Dose: 81 mg Famotidine (Pepcid) 40 mg PO HS [facility] Last Admin: 04/25/18 21:17 Dose: 40 mg Sodium Chloride (Sodium Chloride 0.9%) 1,000 mls @ 100 mls/hr IV .Q10H [facility] Last Admin: 04/25/18 21:40 Dose: 100 mls/hr Ceftriaxone Sodium (Rocephin 2 Gm Ivpb) 2 gm in 100 mls @ 100 mls/hr IVPB Q12 [facility] PRN Reason: Protocol Stop: 05/22/18 22:01 Last Admin: 04/25/18 21:17 Dose: 100 mls/hr Physical Exam - Constitutional Additional comments: In general, Mr. Killian is pleasant, A/o x 3, and in no acute distress - Head Exam Head Exam: ATRAUMATIC, NORMAL INSPECTION, NORMOCEPHALIC - Eye Exam Eye Exam: Normal appearance, PERRL - ENT Exam ENT Exam: Mucous Membranes Moist - Neck Exam Neck exam: Positive for: Full Rom, Normal Inspection. Negative for: Tenderness , Thyromegaly - Respiratory Exam Respiratory Exam: Clear to Auscultation Bilateral, NORMAL BREATHING PATTERN. absent: Accessory Muscle Use, Rales, Rhonchi, Wheezes - Cardiovascular Exam Cardiovascular Exam: +S1, +S2, Systolic Murmur. absent: Tachycardia, Diastolic murmur, Gallop Additional comments: Grade III holosystolic murmur loudest in pulmonic region - GI/Abdominal Exam GI & Abdominal Exam: Normal Bowel Sounds, Soft. absent: Guarding, Organomegaly , Rebound, Tenderness - Extremities Exam Extremities exam: Positive for: full ROM, normal capillary refill, normal inspection, pedal pulses present. Negative for: calf tenderness, pedal edema Additional comments: No obvious petechiae or purpura - Neurological Exam Neurological exam: Alert, Oriented x3 - Psychiatric Exam Psychiatric exam: Normal Affect, Normal Mood - Skin Skin Exam: Dry, Intact, Normal Color, Warm Results - Vital Signs Recent Vital Signs: Last Vital Signs Temp 97.6 F 04/26/18 06:00 Pulse 71 04/26/18 06:00 Resp 20 04/26/18 06:00 BP 89/59 L 04/26/18 06:00 Pulse Ox 98 04/26/18 06:00 - Labs Result Diagrams: 04/25/18 06:00 04/26/18 06:00 Labs: Laboratory Results - last 24 hr 04/24/18 04/26/18 04/26/18 20:52 06:00 06:00 PT 13.0 H INR 1.13 H APTT 33.3 Sodium 141 Potassium 4.0 Chloride 104 Carbon Dioxide 26 Anion Gap 15 BUN 10 Creatinine 0.7 L Est GFR ( Amer) > 60 Est GFR (Non-Af Amer) > 60 Random Glucose 83 Calcium 8.7 Total Bilirubin 0.5 AST 87 H ALT 135 H Alkaline Phosphatase 68 C-Reactive Protein 31.80 H Total Protein 6.3 Albumin 3.6 Globulin 2.7 Albumin/Globulin Ratio 1.3 Assessment & Plan - Assessment and Plan (Free Text) Assessment: Mr. Killian is a 42 year old male with PMH of endocarditis, congenital bicuspid aortic valve (s/p valve replacements around age 11), aortic stenosis, and L foot MRSA infection was admitted following positive blood cultures and with symptoms concerning for endocarditis. He has been leukopenic and thrombocytopenic since admission. Leukopenia/Thrombocytopenia -Likely secondary to bone marrow suppression from sepsis/endocarditis -Low suspicion for TTP/HUS or other TMA syndromes at this point -We will continue to monitor as his antibiotic treatment continues, especially the absolute neutrophil count -Will consider bone marrow biopsy if counts continue to worsen over the next three days -If bone marrow biopsy is done, will need to send for cultures Case and plan were reviewed and discussed in detail with my attending physician Dr. Roxie Joseph DO IM Resident PGY-1
[2018-04-26] MEDS: cefTRIAXone 2 GM IN NS 2 GM/100 ML BAG IVPB SCH ×2 (10:00→22:24)
[2018-04-26] MEDS ORDERED: Midazolam 2 MG/2 ML VIAL ONE (12:23)
[2018-04-26] MEDS ORDERED: Flumazenil 0.1 mg/ml Inj (5ml) IVP ONE (12:23)
[2018-04-26] MEDS ORDERED: Naloxone 0.4 mg/ml Inj (Adult) ONE (12:24)
--- NOTE | 2018-04-26 12:28 | CP.PCM.PN ---
Subjective - Date & Time of Evaluation Date of Evaluation: 04/26/18 Time of Evaluation: 09:55 - Subjective Subjective: For ISAÍAS today, no fevers. Objective - Vital Signs/Intake and Output Vital Signs (last 24 hours): Temp Pulse Resp BP Pulse Ox 97.6 F 71 20 89/59 L 98 04/26/18 06:00 04/26/18 06:00 04/26/18 06:00 04/26/18 06:00 04/26/18 06:00 Intake and Output: 04/25/18 04/26/18 18:59 06:59 Intake Total 840 0 Output Total 2 Balance 838 0 - Medications Medications: Current Medications Acetaminophen (Tylenol 325mg Tab) 650 mg PO Q4H PRN PRN Reason: temp greater than 100.4 Last Admin: 04/22/18 19:37 Dose: 650 mg Aspirin (Ecotrin) 81 mg PO DAILY [facility] Last Admin: 04/25/18 10:19 Dose: 81 mg Famotidine (Pepcid) 40 mg PO HS [facility] Last Admin: 04/25/18 21:17 Dose: 40 mg Sodium Chloride (Sodium Chloride 0.9%) 1,000 mls @ 100 mls/hr IV .Q10H [facility] Last Admin: 04/25/18 21:40 Dose: 100 mls/hr Ceftriaxone Sodium (Rocephin 2 Gm Ivpb) 2 gm in 100 mls @ 100 mls/hr IVPB Q12 [facility] PRN Reason: Protocol Stop: 05/22/18 22:01 Last Admin: 04/25/18 21:17 Dose: 100 mls/hr - Labs Labs: 04/25/18 06:00 04/25/18 06:00 PT 12.8 SECONDS (9.4-12.5) H 04/25/18 06:00 INR 1.11 (0.93-1.08) H 04/25/18 06:00 APTT 31.3 Seconds (25.1-36.5) 04/25/18 06:00 - Constitutional Appears: Non-toxic, Chronically Ill - Head Exam Head Exam: NORMAL INSPECTION - Respiratory Exam Respiratory Exam: Decreased Breath Sounds - Cardiovascular Exam Cardiovascular Exam: +S1, +S2 - GI/Abdominal Exam GI & Abdominal Exam: Soft. absent: Tenderness Assessment and Plan - Assessment and Plan (Free Text) Plan: Assessment Sepsis due to Strep gordonii bacteremia, suspicious for endocarditis in this patient with history of endocarditis and with poor dentition history of pulmonary valve surgery history of left foot MRSA infection Plan continue Rocephin; repeat blood cx are negative 2D echo is negative for vegetations - patient is scheduled for ISAÍAS today HIV test is non-reactive will continue to monitor clinically
[2018-04-26] MEDS ORDERED: Benzocaine/Butamben/Tetracai 14-2-2% TOP Spray TOP ONE (12:36)
[2018-04-26] MEDS ORDERED: Midazolam 2 MG/2 ML VIAL IV ONE ×3 (12:41→12:46)
[2018-04-26] MEDS ORDERED: Sodium Chloride 0.9% 1,000 ML IV SCH (13:30)
--- NOTE | 2018-04-26 14:52 | PN ---
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 No fevers, no chills, no nausea, no vomiting. PHYSICAL EXAMINATION: VITAL SIGNS: Temperature of 98, blood pressure is 120/70, respiratory rate is 16. HEENT: Unremarkable. NECK: Supple. LUNGS: Have decreased breath sounds. HEART: Normal S1 and S2. ABDOMEN: Soft. LABORATORY EXAMINATION: Reveals the patient's white count is noted. Cultures are noted. ASSESSMENT AND PLAN: A 42-year-old male with sepsis with gram-positive cocci in chains, bacteremia, probable endocarditis with the patient both aortic valve and pulmonic valve surgery and on daptomycin. We at that time are awaiting for further workup. We will follow closely with you. Alex Hung MD
--- NOTE | 2018-04-26 17:08 | CARD ---
APPROVED REPORT Date of service: 04/26/2018 EXAM: Transesophageal echocardiogram with color flow Doppler. INDICATION R/O ENDOCARDITIS Aortic Valve AoV Peak Mgjxslfy745.0cm/Francisca Peak GR.14mmHg Mitral Valve E/A ratio0.0 TDI E/Lateral E'0.0E/Medial E'0.0 Pulmonary Valve PV Peak Dlhzxxax532.0cm/sPV Peak Grad.62mmHg Tricuspid Valve TR Peak [id number]/sRAP [id number] Peak Gr.48mmHg [id number] LEFT VENTRICLE The left ventricle is normal size. There is mild concentric left ventricular hypertrophy. The left ventricular function is normal.EF-55-60% There is normal LV segmental wall motion. The left ventricular diastolic function is normal. No left ventricle thrombus noted on this study. There is no ventricular septal defect visualized. There is no left ventricular aneurysm. There is no mass noted in the left ventricle. RIGHT VENTRICLE The right ventricle is mildly dilated. There is normal right ventricular wall thickness. Systolic function is mildly reduced. ATRIA The left atrium is mildly dilated. The right atrium is mildly dilated. The interatrial septum is intact with no evidence for an atrial septal defect. AORTIC VALVE The aortic valve is mildly thickened. There is trace to mild aortic regurgitation. There is no aortic valvular stenosis.OSVALDO by planimetry 2.46 cm2 There is no aortic valvular vegetation. MITRAL VALVE The mitral valve leaflets are thickened. There is no evidence of mitral valve prolapse. There is no mitral valve stenosis. Mitral regurgitation is trace to mild. TRICUSPID VALVE The tricuspid valve leaflets display thickening. There is mild to moderate tricuspid regurgitation.RBvSP-58 mmof Hg. There is no tricuspid valve prolapse or vegetation. There is no tricuspid valve stenosis. PULMONIC VALVE The pulmonic valve is moderately thickened. There is mild pulmonic valvular regurgitation. There is severe pulmonic stenosis. Peakgradient across aortic Valve 62 mm of Hg. GREAT VESSELS The aortic root is normal in size. The ascending aorta is normal in size. The pulmonary artery is normal. The IVC is normal in size and collapses >50% with inspiration. PERICARDIAL EFFUSION There is no pericardial effusion. There is no pleural effusion. <Conclusion> The left ventricle is normal size. The left ventricular function is normal.EF-55-60% There is trace to mild aortic regurgitation. There is no aortic valvular stenosis.OSVALDO by planimetry 2.46 cm2 Mitral regurgitation is trace to mild. There is mild to moderate tricuspid regurgitation.RVSP-58 mmof Hg., There is mild pulmonic valvular regurgitation. There is severe pulmonic stenosis. Peakgradient across aortic Valve 62 mm of Hg. There is no pericardial effusion. No Obvious Vegetation noted in this study. S/p Ross procedure and Cadaveric Valve in Pulmonary position ,which has stnosed now, significant turbulance noted in TTE ( and appears as moderate to severe PI). Main pulmonary artery also appears narrowed ( diameter 1.3 cm)
--- NOTE | 2018-04-26 18:23 | PN ---
DATE: 04/26/2018 PULMONARY PROGRESS NOTE REFERRING PHYSICIAN: Yolanda Rizzo MD. SUBJECTIVE: He was seen in the stretcher, awaiting for transesophageal echo to be done. Short of breath with exertion. No chest pain at present. No nausea, vomiting, diarrhea, leg pain, leg swelling. OBJECTIVE: GENERAL: In no acute distress. VITAL SIGNS: Temperature is 98, heart rate 63, respiratory rate 18, blood pressure 105/64, pulse ox 100% on 2 L nasal cannula. HEENT: Moist mucous membrane. Crowded airway. NECK: Supple. No JVD. LUNGS: Have fair airflow with rhonchi. HEART: S1 and S2 with murmur. ABDOMEN: Soft, nontender, no organomegaly. EXTREMITIES: No edema. NEUROLOGICAL: Awake alert, follows simple command. MEDICATIONS: He is on Ecotrin 81 mg daily, Pepcid 40 mg daily, Rocephin 2 g IV every 12 hours, IV fluid normal saline 100 mL/hour, Tylenol p.r.n. basis. LABORATORY DATA: Shows INR 1.13, PTT 33. Sodium 141, potassium 4, chloride 104, bicarbonate 26, BUN is 10, creatinine 0.7, glucose 83, calcium is 8.7, AST 87, ALT 135, alk phos is 68, albumin is 3.6. HIV 1 and 2 have been nonreactive. Repeat blood culture, there is no growth. Has a transesophageal echo done, which shows the left ventricle is normal size. LV ejection fraction 55-60%, trace mild aortic regurg. There is no aortic valve stenosis. Moderate tricuspid regurg with right ventricular systolic pressure of 58, severe pulmonic stenosis. IMPRESSION AND PLAN: Valvular heart disease, right heart hypertension, severe tricuspid valve stenosis, rule out sleep apnea syndrome, has a 1/2 blood culture positive on admission, on antibiotics. Pulmonary point of view, he his doing okay. Keep head at 45 degrees. Careful with sedation. We will recommend sleep study upon discharge as outpatient. Infectious Diseases and Cardiology followup. Thank you and we will follow with you. Adrienne Gunter MD
--- NOTE | 2018-04-26 23:38 | PN ---
DATE: 04/26/2018 SUBJECTIVE: The patient is a 42-year-old male. The patient was seen and examined on the bedside on 04/26/2018, looking comfortable, status post ISAÍAS. No hematuria or hematochezia. No swelling of the legs. No chest pain, no palpitation. No headache, no dizziness. No more fever. PHYSICAL EXAMINATION: VITAL SIGNS: Temperature 98, heart rate is 63, respiratory rate 18, blood pressure 105/64, pulse oximetry is 100% on 2 liter nasal cannula. HEENT: Head normocephalic, atraumatic. Eyes PERRLA. Extraocular muscles intact. Conjunctivae clear. Nose patent. NECK: Supple. No carotid bruit, JVD or thyromegaly. CHEST: Bilaterally symmetrical. HEART: S1 and S2 positive. LUNGS: Clear to auscultation. ABDOMEN: Soft. Bowel sounds positive. No organomegaly. EXTREMITIES: No edema. No cyanosis. NEUROLOGICAL: The patient is awake and alert. Follows simple commands. MEDICATIONS: Ecotrin, Pepcid, Rocephin, IV fluid, NS, Tylenol. LABORATORY DATA: INR is 1.13, BUN 10, creatinine 0.7, glucose 83. Sodium 141, potassium 4. AST 87, ALT 135. HIV 1 and 2 have been nonreactive. Repeat blood culture shows no growth. ASSESSMENT AND PLAN: Mr. Clint Killian is a 42-year-old male with valvular heart disease; right heart hypertension; severe tricuspid valve stenosis; sleep apnea syndrome; blood cultures positive on admission; on antibiotics; the patient went for transesophageal echo today, negative for vegetation as per Dr. Moffett; Infectious Diseases, Cardiology, and Pulmonary is on the case; sepsis due to Streptococcus gordonii bacteremia, suspicious was of endocarditis; history of pulmonary valve surgery; history of left foot methicillin-resistant Staphylococcus aureus infection. Continue Rocephin. Repeat blood cultures are negative. A 2D echo is negative for vegetation. The patient was scheduled for transesophageal echo and went for actually transesophageal echo. Continue monitoring the patient. Gastrointestinal and deep vein thrombosis prophylaxes. Repeat labs. We will follow up. Yolanda Rizzo MD [facility] # [id number]
[2018-04-27 00:13] VITALS: O2SAT 99
[2018-04-27] MEDS: Sodium Chloride 0.9% 1,000 ML IV SCH (05:10)
[2018-04-27 06:19] VITALS: TEMP 98.2
[2018-04-27 07:04] LABS: INR 1.2 (0.93-1.08); PARTIAL THROMBOPLASTIN TIME 33.7 Seconds (25.1-36.5); PROTHROMBIN TIME 13.8 SECONDS (9.4-12.5)
[2018-04-27 07:07] LABS: ALB/GLOB RATIO 1.6 (1.1-1.8); ALBUMIN 3.9 g/dL (3.0-4.8); ALT/SGPT 138 U/L (7-56); AST/SGOT 70 U/L (17-59); BLOOD UREA NITROGEN 13 mg/dL (7-21); CALCIUM 9.1 mg/dL (8.4-10.5); GFR AFRICAN-AMERICAN > 60; GFR NON-AFRICAN AMERICAN > 60
--- NOTE | 2018-04-27 07:40 | CP.PCM.PN ---
Subjective - Date & Time of Evaluation Date of Evaluation: 04/27/18 Time of Evaluation: 07:15 - Subjective Subjective: Patient was seen and examined at bedside. This AM he has no complaints and reports his joint pains have improved overnight. Denies fevers, chills, or night sweats overnight. Objective - Vital Signs/Intake and Output Vital Signs (last 24 hours): Temp Pulse Resp BP Pulse Ox 98.2 F 58 L 22 95/59 L 99 04/27/18 06:00 04/27/18 06:00 04/27/18 06:00 04/27/18 06:00 04/27/18 06:00 Intake and Output: 04/27/18 04/27/18 06:59 18:59 Intake Total 180 Balance 180 - Medications Medications: Current Medications Acetaminophen (Tylenol 325mg Tab) 650 mg PO Q4H PRN PRN Reason: temp greater than 100.4 Last Admin: 04/22/18 19:37 Dose: 650 mg Aspirin (Ecotrin) 81 mg PO DAILY [facility] Last Admin: 04/26/18 18:20 Dose: 81 mg Famotidine (Pepcid) 40 mg PO HS [facility] Last Admin: 04/26/18 22:24 Dose: 40 mg Sodium Chloride (Sodium Chloride 0.9%) 1,000 mls @ 100 mls/hr IV .Q10H [facility] Last Admin: 04/27/18 05:10 Dose: Not Given Ceftriaxone Sodium (Rocephin 2 Gm Ivpb) 2 gm in 100 mls @ 100 mls/hr IVPB Q12 [facility] PRN Reason: Protocol Stop: 05/22/18 22:01 Last Admin: 04/26/18 22:24 Dose: 100 mls/hr - Labs Labs: 04/25/18 06:00 04/27/18 06:30 PT 13.8 SECONDS (9.4-12.5) H 04/27/18 06:30 INR 1.20 (0.93-1.08) H 04/27/18 06:30 APTT 33.7 Seconds (25.1-36.5) 04/27/18 06:30 - Constitutional Appears: No Acute Distress - Head Exam Head Exam: ATRAUMATIC, NORMAL INSPECTION, NORMOCEPHALIC - Eye Exam Eye Exam: Normal appearance, PERRL - ENT Exam ENT Exam: Mucous Membranes Moist - Neck Exam Neck Exam: Full ROM, Normal Inspection. absent: Tenderness, Thyromegaly - Respiratory Exam Respiratory Exam: Clear to Ausculation Bilateral, NORMAL BREATHING PATTERN. absent: Accessory Muscle Use, Rales, Rhonchi, Wheezes - Cardiovascular Exam Cardiovascular Exam: REGULAR RHYTHM, RRR, +S1, +S2. absent: Gallop, Rubs Additional comments: Grade III diastolic murmur heard loudest at right intercostal space - GI/Abdominal Exam GI & Abdominal Exam: Soft, Normal Bowel Sounds. absent: Tenderness, Organomegaly - Extremities Exam Extremities Exam: Normal Capillary Refill, Normal Inspection. absent: Calf Tenderness, Pedal Edema - Neurological Exam Neurological Exam: Alert, Awake, Oriented x3 - Psychiatric Exam Psychiatric exam: Normal Affect, Normal Mood - Skin Skin Exam: Dry, Intact, Normal Color, Warm Assessment and Plan - Assessment and Plan (Free Text) Assessment: Mr. Killian is a 42 year old male with PMH of endocarditis, congenital bicuspid aortic valve (s/p valve replacements around age 11), aortic stenosis, and L foot MRSA infection was admitted following positive blood cultures and with symptoms concerning for endocarditis. He has been leukopenic and thrombocytopenic since admission. Leukopenia/Thrombocytopenia -Likely secondary to bone marrow suppression from sepsis/endocarditis -Continue to monitor WBC count, especially absolute neutrophil count -WBC count and platelets are improving, continue daily CBC -Consider bone marrow bx on Monday if counts continue to trend down on the weekend Case and plan were reviewed and discussed in detail with my attending physician Dr. Roxie Joseph, IM Resident PGY-1
[2018-04-27] MEDS ORDERED: cefTRIAXone 2 GM IN NS 2 GM/100 ML BAG IVPB SCH (10:00)
[2018-04-27] MEDS ORDERED: levoFLOXacin 750 MG TAB PO SCH (10:00)
[2018-04-27 11:01] LABS: BASO # 0.01 K/mm3 (0.0-2.0); BASO % 0.2 % (0.0-3.0); EOS # 0.1 (0.0-0.7); EOS % 2.7 % (1.5-5.0); GRAN # 2.43 (1.4-6.5); GRAN % 58.5 % (50.0-68.0); HEMOGLOBIN 14.2 g/dL (14.0-18.0); LYMPH # 1.1 (1.2-3.4); LYMPH % 27.5 % (22.0-35.0); MEAN CELL VOLUME 85.4 fl (80.0-105.0); MEAN CORPUSCULAR HEMOGLOBIN 29.2 pg (25.0-35.0); MEAN CORPUSCULAR HGB CONC 34.2 g/dl (31.0-37.0); MEAN PLATELET VOLUME 11.8 fl (7.0-11.0); MONO # 0.5 (0.1-0.6); MONO % 11.1 % (1.0-6.0); RBC 4.86 10^6/uL (3.5-6.1); RED CELL DISTRIBUTION WIDTH 12.7 % (11.5-14.5); WHITE BLOOD COUNT 4.2 10^3/ul (4.5-11.0)
--- NOTE | 2018-04-27 11:12 | CP.PCM.PN ---
<Yadiel Grijalva - Last Filed: 04/27/18 11:04> Subjective - Date & Time of Evaluation Date of Evaluation: 04/27/18 Time of Evaluation: 08:00 - Subjective Subjective: GI Consult Note for Dr. Clive Grijalva, PGY-3 IM Patient seen and examined at bedside. Feeling better overall, s/p ISAÍAS yesterday. No acute events overnight as per nursing. Pt reports pending a PICC line and then discharge. Currently on Rocephin/Daptomycin. Instructed patient that he will need routine monitoring while on antibiotics as an outpatient to monitor LFTs, make sure no acute worsening of transaminitis while on prolonged antibiotic course for endocarditis. Pt expressed understanding and agreement. Objective - Vital Signs/Intake and Output Vital Signs (last 24 hours): Temp Pulse Resp BP Pulse Ox 98.2 F 58 L 22 95/59 L 99 04/27/18 06:00 04/27/18 06:00 04/27/18 06:00 04/27/18 06:00 04/27/18 06:00 Intake and Output: 04/27/18 04/27/18 06:59 18:59 Intake Total 180 Balance 180 - Medications Medications: Current Medications Acetaminophen (Tylenol 325mg Tab) 650 mg PO Q4H PRN PRN Reason: temp greater than 100.4 Last Admin: 04/22/18 19:37 Dose: 650 mg Aspirin (Ecotrin) 81 mg PO DAILY [facility] Last Admin: 04/27/18 10:05 Dose: 81 mg Famotidine (Pepcid) 40 mg PO HS [facility] Last Admin: 04/26/18 22:24 Dose: 40 mg Ceftriaxone Sodium (Rocephin 2 Gm Ivpb) 2 gm in 100 mls @ 100 mls/hr IVPB DAILY [facility] PRN Reason: Protocol Last Admin: 04/27/18 10:05 Dose: 100 mls/hr - Labs Labs: 04/27/18 08:00 04/27/18 06:30 PT 13.8 SECONDS (9.4-12.5) H 04/27/18 06:30 INR 1.20 (0.93-1.08) H 04/27/18 06:30 APTT 33.7 Seconds (25.1-36.5) 04/27/18 06:30 - Additional Findings Additional findings: - Constitutional Appears: Non-toxic, No Acute Distress - Head Exam Head Exam: ATRAUMATIC, NORMAL INSPECTION, NORMOCEPHALIC - Eye Exam Eye Exam: EOMI, Normal appearance. absent: Conjunctival injection, Scleral icterus Pupil Exam: absent: Fixed, Irregular - ENT Exam ENT Exam: Mucous Membranes Moist. absent: Mucous Membranes Dry - Neck Exam Neck exam: Positive for: Full Rom, Normal Inspection - Respiratory Exam Respiratory Exam: Clear to Auscultation Bilateral, NORMAL BREATHING PATTERN. absent: Accessory Muscle Use, Chest Wall Tenderness, Decreased Breath Sounds, Rales, Rhonchi, Wheezes - Cardiovascular Exam Cardiovascular Exam: RRR, +S1/2, No JVD, Loud diastolic murmur most prominent at R and L 2nd intercostal spaces (L>R) - GI/Abdominal Exam GI & Abdominal Exam: Normal Bowel Sounds, Soft. absent: Diminished Bowel Sounds , Distended, Tenderness - Extremities Exam Extremities exam: Positive for: normal capillary refill, normal inspection, pedal pulses present. Negative for: calf tenderness, tenderness - Neurological Exam Neurological exam: Awake and Alert, Oriented x3, moving all extremities spontaneously - Psychiatric Exam Psychiatric exam: Normal Affect, Normal Mood - Skin Skin Exam: Dry, Intact, Normal Color, Warm no jaundice, petichea, osler's nodes, or janeway lesions appreciated on exam Assessment and Plan - Assessment and Plan (Free Text) Assessment: This is a 42 yo M with PMH of prior CVA without residual deficit and endocarditis s/p valvular replacement surgery (congenital bicuspid aortic valve removed, [place] pulmonic valve harvested and implanted as new aortic valve, cadaver pulmonic valve used for new pulmonic valve) presenting for possible new episode of endocarditis. GI was consulted today due to mildly elevated LFTs on admission blood work which were not present on ED bloodwork 2 days prior to this admission. S/p ISAAÍS, pending discharge on chcf antibiotics after PICC placement. Plan: prior CVA without residual deficit hx endocarditis s/p valvular replacement surgery -congenital bicuspid aortic valve removed, [place] pulmonic valve implanted as new aortic valve, cadaver pulmonic valve used for new pulmonic valve Elevated LFTs on re-presentation: improved but persisting Ddx: elevated LFTs 2/2 sepsis vs drug induced (tylenol vs NSAID), possibly multifactorial -Abd US obtained, negative for ductal dilation, CBD 3mm, mild fatty liver -AST improved again, ALT remains in 130s, coags stable, Alk Phos and TBili wnl -No acute GI intervention at this time, continue to trend daily LFTs and Coags to monitor hepatic function, avoid hepatotoxic drugs where reasonable -S/p ISAÍAS, pending PICC and long-term abx for endocarditis While on chcf abx, will need routine monitoring of LFTs to ensure to worsening of LFTs/hepatic insult from long-term abx -Heme-onc consulted for thrombocytopenia and leukopenia, likely from sepsis as per Heme-Onc resident note Patient seen, reviewed, and examined with attending, Dr. Duffy <Kenton Duffy V - Last Filed: 04/28/18 02:44> Objective - Vital Signs/Intake and Output Vital Signs (last 24 hours): Temp Pulse Resp BP Pulse Ox 98.2 F 68 18 101/63 99 04/27/18 12:00 04/27/18 12:00 04/27/18 12:00 04/27/18 12:00 04/27/18 06:00 Intake and Output: 04/27/18 04/28/18 18:59 06:59 Intake Total 100 Balance 100 - Labs Labs: 04/27/18 08:00 04/27/18 06:30 PT 13.8 SECONDS (9.4-12.5) H 04/27/18 06:30 INR 1.20 (0.93-1.08) H 04/27/18 06:30 APTT 33.7 Seconds (25.1-36.5) 04/27/18 06:30 Attending/Attestation - Attestation I have personally seen and examined this patient.: Yes I have fully participated in the care of the patient.: Yes I have reviewed all pertinent clinical information, including history, physical exam and plan: Yes Notes (Text): This is an addendum to GI progress report dictated by the Quarter Supervisor.The patient was seen and examined earlier. Medical records, lab studies, imagings were reviewed. Last 24 hours events reviewed. Agreed with the above treatment plan as outlined in Quarter Supervisor 's notes the with the addition of the following 04/28/18 02:44
--- NOTE | 2018-04-27 11:28 | PN ---
DATE: 04/27/2018 REASON FOR CONSULTATION AND FOLLOWUP: Rule out endocarditis. SUBJECTIVE: The patient denies any chest pain, shortness of breath or any palpitations. OBJECTIVE: GENERAL: Not in apparent distress. VITAL SIGNS: Temperature afebrile, heart rate 58, blood pressure 95/59. HEENT: PERRLA, intact. NECK: Supple. No carotid bruit or thyromegaly. CHEST: Clear to auscultation. HEART: S1 and S2, regular. ABDOMEN: Soft. EXTREMITIES: Clubbing and cyanosis negative. LABORATORY DATA: WBC 2.5, hemoglobin 13.5, hematocrit 40.4, platelet count 93. Chemistry shows sodium 140, potassium 4.0, chloride 104, carbon dioxide 29, anion gap of 15, BUN 13, creatinine 0.8. The patient underwent ISAÍAS yesterday that showed preserved LV function, status post Ross procedure, patient's pulmonary valve in aortic position and cadaveric valve in pulmonary position which has stenosed and gradient across pulmonary valve is 62 mmHg. No evidence of endocarditis noted. Ejection fraction 55%-60%. ASSESSMENT AND PLAN: History of bicuspid aortic valve, history of multiple valvuloplasty and then patient had Ross procedure. Discussed with patient in length. Continue antibiotics possibly for four weeks or Infectious Disease recommendation. So far, no evidence of endocarditis. Film for the ISAÍAS and the report given to the patient. Patient had an appointment to see Cardiology yesterday for possible TAVR in pulmonary position. Once the patient is cleared from the Infectious Disease, he will be discharged with antibiotic for possible 2 to 4 weeks depending upon Infectious Disease recommendation. Repeat blood culture from 04/24/2018 is negative. 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 The patient had prior endocarditis in 2008. Since then, the patient does not have any dental examination, so mentioned to have a dental workup and examination and removal of all loose tooth or abscesses. Thank you, Dr. Rizzo, for providing us the opportunity in taking care of the patient, Clint Killian. Adrienne Moffett MD
--- NOTE | 2018-04-27 13:49 | CP.PCM.PN ---
Subjective - Date & Time of Evaluation Date of Evaluation: 04/27/18 Time of Evaluation: 11:00 - Subjective Subjective: Patient is feeling better, no fevers, no chest pain, no back pain, no leg weakness, no difficulty in ambulation, no bowel or bladder incontinence. No diarrhea. Objective - Vital Signs/Intake and Output Vital Signs (last 24 hours): Temp Pulse Resp BP Pulse Ox 98.2 F 58 L 22 95/59 L 99 04/27/18 06:00 04/27/18 06:00 04/27/18 06:00 04/27/18 06:00 04/27/18 06:00 Intake and Output: 04/27/18 04/27/18 06:59 18:59 Intake Total 180 Balance 180 - Medications Medications: Current Medications Acetaminophen (Tylenol 325mg Tab) 650 mg PO Q4H PRN PRN Reason: temp greater than 100.4 Last Admin: 04/22/18 19:37 Dose: 650 mg Aspirin (Ecotrin) 81 mg PO DAILY [facility] Last Admin: 04/26/18 18:20 Dose: 81 mg Famotidine (Pepcid) 40 mg PO HS [facility] Last Admin: 04/26/18 22:24 Dose: 40 mg Ceftriaxone Sodium (Rocephin 2 Gm Ivpb) 2 gm in 100 mls @ 100 mls/hr IVPB DAILY [facility] PRN Reason: Protocol - Labs Labs: 04/25/18 06:00 04/27/18 06:30 PT 13.8 SECONDS (9.4-12.5) H 04/27/18 06:30 INR 1.20 (0.93-1.08) H 04/27/18 06:30 APTT 33.7 Seconds (25.1-36.5) 04/27/18 06:30 - Constitutional Appears: Non-toxic, Chronically Ill - Head Exam Head Exam: NORMAL INSPECTION - ENT Exam ENT Exam: Mucous Membranes Moist - Neck Exam Neck Exam: absent: Lymphadenopathy, Meningismus - Respiratory Exam Respiratory Exam: Decreased Breath Sounds. absent: Rales - Cardiovascular Exam Cardiovascular Exam: +S1, +S2 - GI/Abdominal Exam GI & Abdominal Exam: Soft. absent: Tenderness - Back Exam Back Exam: absent: paraspinal tenderness, vertebral tenderness Assessment and Plan - Assessment and Plan (Free Text) Plan: Assessment Sepsis due to Strep gordonii bacteremia, with no vegetations seen on ISAÍAS in this patient with history of endocarditis and with poor dentition history of pulmonary valve surgery history of left foot MRSA infection Plan continue Rocephin for 4 weeks from 1st negative blood cx with weekly ESR, CRP, CBC, CMP; repeat blood cx are negative - will need to follow up with PMD as outpatient - discussed this with patient patient has no back pain, no paraspinal or vertebral tenderness on palpation today - explained to patient that he needs to monitor symptoms and signs of back pain or changes in urination and bowel movement and to watch for incontinence or weakness in lower extremities, and if these happen to immediately go to the ER - patient understands HIV test is non-reactive
[2018-04-27 14:21] VITALS: BP 101/63; PULSE 68; RESP 18
--- NOTE | 2018-04-27 16:38 | PN ---
DATE: 04/27/2018 PULMONARY PROGRESS NOTE REFERRING PHYSICIAN: Yolanda Rizzo MD. SUBJECTIVE: He is lying in the bed, head at 45 degrees, status post transesophageal echo yesterday. No headache, no rhinitis. Gets short of breath with exertion. No nausea, vomiting, or diarrhea. No leg pain or leg swelling. PHYSICAL EXAMINATION: GENERAL: In no acute distress. VITAL SIGNS: Temperature is 98, heart rate 68, respiratory rate is 18, blood pressure 101/63, pulse ox 99% on room air. HEENT: Moist mucous membrane. Crowded airway. NECK: Supple. No JVD. LUNGS: Have a fair airflow with rhonchi. HEART: S1 and S2 with murmur. ABDOMEN: Soft, nontender. No organomegaly. EXTREMITIES: No edema. NEUROLOGIC: Awake, alert, and follows simple command. MEDICATIONS: He is on Ecotrin 81 mg daily, Pepcid 40 mg daily, Rocephin 2 g IV daily, and Tylenol p.r.n. basis. LABORATORY DATA: Shows hemoglobin 14.2, hematocrit 41.5, WBC 4.2, platelet count is 142. INR 1.2, PTT is 34. Sodium 142, potassium 4.8, chloride 104, bicarbonate 29, BUN 13, creatinine 0.8, glucose is 85, calcium 9.1. Total bilirubin 0.6, AST 70, ALT 138, alkaline phosphatase is 72. Albumin is 3.9. 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 Pulmonary point of view, doing okay, keep head at 45 degrees, p.r.n. bronchodilator, sleep apnea precaution, avoid sedation. Discharge once cleared by Cardiology and ID. Outpatient sleep study. Thank you and we will follow with you. Adrienne Gunter MD
== END 2018-04-27 21:45 | disposition home or self-care (01) | DRG 306 ==
LOC: ED 11:51 → ERH 13:17 → 2RNO 15:27
PROVIDERS: ADMIT Internal Medicine; ATTEND Internal Medicine
PROC: B246ZZ4 Ultrasonography of Right and Left Heart, Transesophageal (ICD-10-PCS; principal; 2018-04-26 11:00)
PROC: 02HV33Z Insertion of Infusion Device into Superior Vena Cava, Percutaneous Approach (ICD-10-PCS; 2018-04-27)
PROC: B548ZZA Ultrasonography of Superior Vena Cava, Guidance (ICD-10-PCS; 2018-04-27)
DX: I08.8 Other rheumatic multiple valve diseases (principal); A40.9 Streptococcal sepsis, unspecified; I10 Essential (primary) hypertension; Z86.14 Personal history of Methicillin resistant Staphylococcus aureus infection; Z86.73 Personal history of transient ischemic attack (TIA), and cerebral infarction without residual deficits; Z95.2 Presence of prosthetic heart valve; D64.9 Anemia, unspecified; D69.6 Thrombocytopenia, unspecified; D72.819 Decreased white blood cell count, unspecified; G47.30 Sleep apnea, unspecified; J45.909 Unspecified asthma, uncomplicated; K76.0 Fatty (change of) liver, not elsewhere classified; R79.1 Abnormal coagulation profile; Z82.49 Family history of ischemic heart disease and other diseases of the circulatory system